=== PATIENT | female | born 1955 | race Two or more races ===

== ENCOUNTER 2025-01-13 12:07 | Inpatient (IN) | payer MEDICARE, MEDICAID, SELFPAY ==
[2025-01-13] VITALS (13 sets, daily range): BP systolic 109–133; BP diastolic 47–77; PULSE 71–86; RESP 16–80; TEMP 36.7–38.2; O2SAT 87–100; BMI 39.0
--- NOTE | 2025-01-13 12:20 | EKG_ITS ---
[facility] Test Date: 2025-01-13 Pat Name: MAX HADLEY Department: Room: - Gender: Female Rehab Tech: : [id number] Requested By: Mitch Pantoja Order Number: [id number] Reading MD: Mitch Pantoja Measurements Intervals [place] Rate: 81 P: 50 NM: 163 QRS: 60 QRSD: 84 T: 70 QT: 358 QTc: 418 Interpretive Statements SINUS RHYTHM No previous ECG available for comparison /store/S0/[id number]/[id number]
--- NOTE | 2025-01-13 12:23 | EDNOTE_ITS ---
<Statement entered by Tiffani Barrera MD - 01/13/25 15:03> As co-signing physician, I was present and available for consult prn. I concur with the plan and care as documented by the midlevel provider. ED General RME/HPI General Chief complaint: Weakness Stated complaint: SENT BY [facility] FOR HIGH BP, 90% O2 SAT ON RA Time Seen by Provider: 01/13/25 12:19 Arrival date/time: 01/13/25 12:07 CC: Cough shortness of breath fever HPI ongoing for 2 weeks progressive increase in severity over the last 24 hours. Denies any chest pain past medical history of hypertension hyperlipidemia Related Data Home Medications ?Medication ?Instructions ?Recorded ?Confirmed albuterol sulfate 2.5 mg/3 mL 2 puff inhalation TID NM N WHEEZING 09/05/13 (0.083 %) solution for nebulization ##0 clonazepam 1 mg tablet 1 mg PO BID PRN Anxiety ##0 09/05/13 01/24/19 omeprazole 20 mg capsule,delayed 20 mg PO QDAY GERD ## 0 09/05/13 01/24/19 release lisinopril 40 mg tablet 40 ml PO QDAY HBP #0 tabs 01/24/19 albuterol sulfate 90 mcg/actuation 2 puff inhalation Q ID PRN Wheezing 01/24/19 01/24/19 aerosol inhaler (Ventolin HFA) aspirin 81 mg tablet,delayed 81 mg PO QDAY 01/24/19 release (Michele Low Dose Aspirin) cetirizine 10 mg tablet 10 mg PO QDAY 01/24/1901/24 docusate sodium 250 mg capsule 250 mg PO QDAY 01/24/19 01/24/19 (Stool Softener) fluticasone furoate 100 1 inh inhalation QDAY 01/24/19 mcg-vilanterol 25 mcg/dose inhalation powder (Breo Ellipta) fluticasone furoate 50 2 mcg inhalation QDAY 01/24/19 mcg/actuation blister powder for inhalation guaifenesin 400 mg tablet 400 mg PO Q4H PRN Cough 01/0601/24/19 olopatadine 0.1 % eye drops 1 drp ophthalmic (eye) BID 01/24/19 01/24/19 ondansetron 8 mg disintegrating 8 mg PO BID PRN Nausea 01/24/19 01/24/19 tablet polyethylene glycol 3350 17 gram 17 g PO BID 01/24/19 01/24/19 oral powder packet (Miralax) pravastatin 20 mg tablet 20 mg PO QDAY 01/24/1901/24 quetiapine 100 mg tablet 100 mg PO BID 01/24/1901/24 topiramate 100 mg tablet 200 mg PO BID 01/24/1901/24 tramadol 50 mg tablet 50 mg PO BID PRN Pain 01/24/19 Previous Rx's ?Medication ?Instructions ?Recorded levofloxacin 750 mg tablet 750 mg PO Q24H #7 tabs 06/01 prednisone 20 mg tablet See Taper PO BID 3 days #6 t abs 01/13/25 Allergies Allergy/AdvReac Type Severity Reaction Status Date / Time latex Allergy Mild Rash Verified 01/13/25 12:12 Sulfa (Sulfonamide Allergy Mild Rash Verified 01/13/25 12:12 Antibiotics) Contrast Media Allergy Unknown Uncoded 01/13/25 12:12 Review of Systems Review of Systems Narrative Review of Systems: GEN: No fever, no chills, no weight loss EYES: No discharge, no visual changes, no pain HEENT: No ear pain, no congestion, no sore throat PULM: + shortness of breath, + cough, no congestion CV: No chest pain, no dyspnea on exertion, no palpitations GI: No nausea, no vomiting, no diarrhea, no pain, no constipation : No frequency, no urgency, no dysuria MUSC/SKEL: No joint pain, no back pain SKIN: No rash PSYCH: No hallucinations, no depression HEME/LYMPH: No easy bleeding or bruising tendencies NEURO: No weakness, no headache Past Medical History Past Medical History NEUROLOGIC: Negative Neurological Disorders or Seizures CARDIAC: Positive Cardiac Disorders, Hypercholesterolemia and Hypertension; Negative Congestive Heart Failure RESPIRATORY: Positive Asthma; Negative Chronic Obstructive Pulmonary Disease (COPD) GASTROINTESTINAL: Positive Gastrointestinal Disorders, Ulcer and Gastroesophageal Reflux Disease GENITOURINARY: Negative Genitourinary Disorders or Renal Disease REPRODUCTIVE: Positive Previous Pregnancies MUSCULOSKELETAL: Positive Musculoskeletal Disorders and Arthritis ENDOCRINE: Negative Endocrine Disorders, Diabetes Mellitus Type 1 or Diabetes Mellitus Type 2 HEMATOLOGIC: Negative Blood Disorders OTHER HISTORY: Positive Falls; Negative Blood Transfusions or Anesthesia Reactions Surgical History SURGICAL: Positive Abdominal Surgery Social History SMOKING STATUS: Current some day smoker ED Exam Narrative Physical exam: [General: Obese, in moderate discomfort acute distress Head normocephalic HEENT: Within acceptable limits Neck is supple nontender Chest equal chest rise nontender to palpation Respiratory: Tachypneic, expiratory crackles bibasilar also crackles in the upper lobes. Audible expiratory wheezing. CV: Rate rhythm is regular tachycardic, no murmurs rubs or clicks Abdomen is distended secondary to body habitus soft nontender no masses positive bowel sounds all 4 quadrants Back: No CVA tenderness no spinous process tenderness from cervical spine thoracic and lumbar spine Skin: Intact no petechiae rash induration ulceration or crepitus Extremities: Moving all extremity against resistance cap refill less than 2 seconds neurosensory intact Neuro: Awake alert oriented x3 Glascow coma 15 no focal deficits] Course Quality Measures none Orders Category Date Time Status Bedside COVID-19 Antigen Test NOW Care 01/13/25 13:08 Active Bedside Influenza A&B Antigen Test NOW Care 01/13/25 12:21 Completed Acoustical Installer STAT Care 01/13/25 12:20 Active Continuous Pulse Oximetry STAT Care 01/13/25 12:20 Completed EKG (ED ONLY) *Do not use* NOW Care 01/13/25 12:20 Completed In and Out Catheter X1PRN Care 01/13/25 12:20 Completed Insert IV NOW Care 01/13/25 12:20 Active NPO STAT Care 01/13/25 12:20 Active Strict Intake and Output Routine Care 01/13/25 12:20 Ordered EKG (ED Only) Stat Exams 01/13/25 12:20 Draft XR chest 1V Stat Exams 01/13/25 13:49 Completed B-Type Natriuretic Peptide Stat Lab 01/13/25 12:46 Completed Blood Culture (Lab) Stat Lab 01/13/25 12:46 Received CBC Stat Lab 01/13/25 12:46 Completed Comprehensive Metabolic Panel Stat Lab 01/13/25 12:46 Completed LDH (Lactate Dehydrogenase) Stat Lab 01/13/25 12:46 Completed Lactate (Lactic Acid) Stat Lab 01/13/25 12:46 Completed Lipase Stat Lab 01/13/25 12:46 Completed Magnesium Stat Lab 01/13/25 12:46 Completed Partial Thromboplastin Time Stat Lab 01/13/25 12:46 Completed Phosphorous Stat Lab 01/13/25 12:46 Completed Procalcitonin Stat Lab 01/13/25 12:46 Completed Prothrombin Time with INR Stat Lab 01/13/25 12:46 Completed Troponin I Stat Lab 01/13/25 12:46 Completed Urinalysis Stat Lab 01/13/25 12:20 Ordered Urine Culture Stat Lab 01/13/25 12:20 Ordered ALBUTEROL RT 0.5ml [Proventil Rt 0.5ml] Med 01/13/25 12:20 Discontinued 5 mg INH X1 ONE Acetaminophen Ivpb [Ofirmev Inj] Med 01/13/25 12:26 Discontinued 1,000 mg in 100 ml IV Q6HR cefTRIAXone/D5w 1gm IV premix [Rocephin/D5w 1gm IV Med 01/13/25 14:40 Active premix] 1 gm in 50 ml IV X1 Oxygen Delivery NOW RT 01/13/25 12:20 Active Vital Signs Vital signs: Vital Signs Temperature 100.8 F H 01/13/25 12:28 Pulse Rate 86 01/13/25 12:28 Respiratory Rate 22 H 01/13/25 12:28 Blood Pressure 133/77 H 01/13/25 12:28 Pulse Oximetry (%) 97 01/13/25 12:28 Oxygen Delivery Method Nasal Cannula 01/13/25 12:28 Oxygen Flow Rate 6 01/13/25 12:28 [facility] Patient data External records reviewed:: [facility] previous records Clinical information provided by:: patient Social determinants that could affect healthcare access:: none Patient has the following chronic illnesses:: Hypertension hyperlipidemia COPD How is presenting disease/condition affected by chronic disease/condition?: e xacerbated by Evaluation data The following diagnostics were reviewed and interpreted by me:: lab results, radiology exam(s) and EKG tracing(s) Lab and/or radiology exams considered but not ordered:: EKG performed at 1237 shows a ventricular rate of 81 NM interval 163 QRS of 84 QTc of 396 is normal sinus rhythm. CBC shows a mild leukocytosis no anemia thrombocytopenia Coags within acceptable limits Sodium 124 potassium 3.4 chloride at 86 BUN and creatinine within acceptable limits glucose of 158. Calcium of 8.4 mag of 1.5 no significant transaminitis or T. bili elevation Troponin is negative BNP is negative. Lipase is 55 Procalcitonin at 0.37. Chest x-ray as interpreted by me read by radiology showed extensive bilateral pneumonia. Interpretation Summary: Patient has been containing oxygen saturations of 94% or greater on room air no tachypnea or tachycardia. This time patient be given IV antibiotics and discharged home on antibiotics and steroids. If is worsening of symptoms next 2 to 3 days he is to return the emergency room immediately for further evaluation. Medications Medications considered but not ordered:: None Medication administrations:: Medication Administration History Ceftriaxone Sodium/Dextrose (Rocephin/D5w 1gm Iv Premix) 1 gm in 50 mls @ 100 mls/hr IV X1 ONE Stop: 01/13/25 15:09 Discontinued Medications Albuterol (Albuterol Rt 2.5 Mg/0.5 Ml Nebu) 5 mg INH X1 ONE Stop: 01/13/25 12:21 Last Admin: 01/13/25 13:02 Dose: 5 mg Documented By: KYREE Acetaminophen (Ofirmev Inj) 1,000 mg in 100 mls @ 250 mls/hr IV Q6HR DINORA Stop: 01/14/25 06:23 Last Infusion: 01/13/25 13:45 Dose: Infused Documented By: Admin: 01/13/25 13:09 Dose: 250 mls/hr Documented By: JULIANO None Consultations Consultation(s) initiated? (list below): No Diagnosis Differential Diagnosis ED Complaint MDM: Pneumonia COPD exacerbation CHF Most likely diagnosis given after review of the tests above:: Pneumonia COPD exacerbation Admission Indicated Admission indicated?: not indicated Explain why admission is indicated or not indicated:: Stable for outpatient follow-up Admission Request Was there a request for admission?: No Disposition Plan Disposition Plan: Discharge Discharge Attestation Discharge Attestation: The patient and all family members were given an opportunity to ask questions and understood the discharge instructions. Discharge instructions specifically effects, indications for sooner follow up or return to the emergency department, and the expected course of current diagnosis. Patient condition: Stable Medical Decision Making Differential Diagnosis Differential Diagnosis: Pneumonia COPD exacerbation CHF Lab Data 01/13/25 12:46 01/13/25 12:46 Labs: Lab Results 01/13/25 Range/Units 12:46 WBC 11.1 H (3.6-11.0) Thou/mm3 RBC 4.35 (4.00-5.20) Miln/mm3 Hgb 12.9 (12.0-16.0) g/dL Hct 36.7 (36.0-46.0) % MCV 84 (80-100) fL MCH 29.7 (25.0-35.0) pg MCHC 35.1 (31.0-37.0) g/dl RDW Std Deviation 36.9 (36.4-46.3) fL Plt Count 263 (140-440) Thou/mm3 Neut % (Auto) 73 (37-80) % Lymph % (Auto) 12 (10-50) % [place] % (Auto) 10 (0-12) % Eos % (Auto) 1 (0-10) % Baso % (Auto) 1 (0-2.5) % Neut # (Auto) 8.1 H (1.8-7.7) Thou/mm3 Lymph # (Auto) 1.3 (1.0-4.8) Thou/mm3 [place] # (Auto) 1.1 H (0.0-0.8) Thou/mm3 Eos # (Auto) 0.1 (0.0-0.5) Thou/mm3 Baso # (Auto) 0.1 (0.0-0.2) Thou/mm3 Immature Gran # (Auto) 0.49 H (0.00-0.00) Thou/mm3 Absolute Nucleated RBC 0.00 (0.00-0.00) Thou/mm3 Immature Gran % 4 H (0-0) % Nucleated RBC % 0 (0) /100 WBC PT 12.1 (9.0-12.2) Seconds INR 1.1 (0.9-1.3) APTT 29.6 (22.0-36.0) Seconds Sodium 124 L (136-145) mMol/L Potassium 3.4 (3.4-5.1) mMol/L Chloride 86 L (98-107) mMol/L Carbon Dioxide 30.7 (20.0-31.0) mMol/L Anion Gap 7 (7-16) BUN 20 (9-23) mg/dL Creatinine 1.1 (0.6-1.3) mg/dL Estim Creat Clear Calc 48.5 L (>60) mL/min eGFR 54 L (60 - ) See Note BUN/Creatinine Ratio 18 (12-20) Ratio Glucose 158 H (74-106) mg/dL Calculated Osmolality 255 L (275-295) Lactic Acid 1.1 (0.4-2.0) mMol/L Calcium 8.4 (8.3-10.6) mg/dL Corrected Calcium 8.4 L (8.5-10.1) mg/dL Phosphorus 3.9 (2.4-5.1) mg/dL Magnesium 1.5 L (1.6-2.6) mg/dL Total Bilirubin 0.5 (0.3-1.2) mg/dL AST 40 H (0-34) U/L ALT 29 (10-49) U/L Alkaline Phosphatase 116 (46-116) U/L Lactate Dehydrogenase 174 (120-246) U/L Troponin I < 0.002 (0.0-0.045) ng/mL B-Natriuretic Peptide 30 (0-100) pg/mL Total Protein 8.0 (5.7-8.2) gm/dL Albumin 4.0 (3.4-4.8) gm/dL Globulin 4.0 H (2.3-3.5) gm/dL Albumin/Globulin Ratio 1.0 L (1.2-2.2) Lipase 55 H (12-53) U/L Procalcitonin 0.37 (0.0-0.49) ng/ml Discharge Plan Plan Patient Disposition: HOME (Self Care) Patient condition on transfer: Stable Prescriptions/Referrals Prescriptions/Med Rec: New levofloxacin 750 mg tablet 750 mg PO Q24H Qty: 7 0RF prednisone 20 mg tablet See Taper PO BID 3 Days Qty: 6 0RF Taper: Prednisone Taper 20 mg DAILY for 2 Days and 0 Hour 10 mg DAILY for 2 Days and 0 Hour 5 mg DAILY for 7 Days and 0 Hour No Action albuterol sulfate 0.83 MG/ML solution 2 puff Inhalation TID PRN (Reason: WHEEZING) Qty: 0 clonazepam 1 MG tablet 1 mg PO BID PRN (Reason: Anxiety) Qty: 0 omeprazole 20 MG capsule,delayed release(DR/EC) 20 mg PO QDAY Qty: 0 lisinopril 40 MG tablet 40 ml PO QDAY Qty: 0 polyethylene glycol 3350 [Miralax] 17 gram Powder In Packet 17 g PO BID cetirizine 10 mg Tablet 10 mg PO QDAY aspirin [Michele Low Dose Aspirin] 81 mg Tablet,Delayed Release (Dr/Ec) 81 mg PO QDAY tramadol 50 mg Tablet 50 mg PO BID PRN (Reason: Pain) quetiapine 100 mg Tablet 100 mg PO BID ondansetron 8 mg Tablet,Disintegrating 8 mg PO BID PRN (Reason: Nausea) olopatadine 0.1 % Drops 1 drp OPHTHALMIC (EYE) BID pravastatin 20 mg Tablet 20 mg PO QDAY albuterol sulfate [Ventolin HFA] 90 mcg/actuation Hfa Aerosol Inhaler 2 puff INHALATION QID PRN (Reason: Wheezing) docusate sodium [Stool Softener] 250 mg Capsule 250 mg PO QDAY topiramate 100 mg Tablet 200 mg PO BID guaifenesin 400 mg Tablet 400 mg PO Q4H PRN (Reason: Cough) Breo Ellipta 100-25 mcg/dose Blister With Device 1 inh INHALATION QDAY fluticasone furoate 50 mcg/actuation Blister With Device 2 mcg INHALATION QDAY Referrals: Preet Blackmon MD [Primary Care Provider] - In 1 week Problem List Clinical Impression: Pneumonia Patient/Caregiver Discharge Instructions Education Materials: ED Pneumonia (Adult) Additional Instructions: Take the medication as prescribed follow-up with your primary care provider if there is a worsening of symptoms return the emergency room medially for further evaluation. Print Language: Senegalese Stand Alone Forms: Dawn Award Info., Work/School Release, Patient Portal Info Letter PA/ISRRAEL Supervising Physician PA/ISRRAEL Supervising Physician: Mitch Diop ENP
[2025-01-13 12:55] LABS: Lactate (Lactic Acid) 1.1 mMol/L (0.4-2.0)
[2025-01-13 12:57] LABS: Basophils # (Auto) 0.1 Thou/mm3 (0.0-0.2); Basophils % (Auto) 1 % (0-2.5); Eosinophils # (Auto) 0.1 Thou/mm3 (0.0-0.5); Eosinophils % (Auto) 1 % (0-10); Hematocrit 36.7 % (36.0-46.0); Hemoglobin 12.9 g/dL (12.0-16.0); Immature Granulocytes % (Auto) 4 % (0-0); Immature Granulocytes Auto 0.49 Thou/mm3 (0.00-0.00); Lymphocytes # (Auto) 1.3 Thou/mm3 (1.0-4.8); Lymphocytes % (Auto) 12 % (10-50); Mean Corpuscular HGB Conc 35.1 g/dl (31.0-37.0); Mean Corpuscular Hemoglobin 29.7 pg (25.0-35.0); Mean Corpuscular Volume 84 fL (80-100); Monocytes # (Auto) 1.1 Thou/mm3 (0.0-0.8); Monocytes % (Auto) 10 % (0-12); Neutrophils # (Auto) 8.1 Thou/mm3 (1.8-7.7); Neutrophils % (Auto) 73 % (37-80); Nucleated Red Blood Cell % 0 /100 WBC (0); Platelet Count 263 Thou/mm3 (140-440); RDW Standard Deviation 36.9 fL (36.4-46.3); Red Blood Count 4.35 Miln/mm3 (4.00-5.20); White Blood Count 11.1 Thou/mm3 (3.6-11.0)
--- NOTE | 2025-01-13 12:58 | PC.NURSE ---
Called RT for neb, tx.
[2025-01-13] MEDS: ALBUTEROL RT 2.5 MG/0.5 ML NEBU 5 MG INH (13:02)
[2025-01-13] MEDS: ACETAMINOPHEN IVPB 1,000 MG/100 ML VIAL 250 MG IV (13:09)
[2025-01-13 13:12] LABS: INR 1.1 (0.9-1.3); Partial Thromboplastin Time 29.6 Seconds (22.0-36.0); Prothrombin Time 12.1 Seconds (9.0-12.2)
[2025-01-13 13:24] LABS: B-Type Natriuretic Peptide 30 pg/mL (0-100)
[2025-01-13 13:28] LABS: Alanine Aminotransferase 29 U/L (10-49); Alkaline Phosphatase 116 U/L (46-116); Anion Gap 7 (7-16); Aspartate Amino Transferase 40 U/L (0-34); BUN/Creatinine Ratio 18 Ratio (12-20); Bilirubin,Total 0.5 mg/dL (0.3-1.2); Blood Urea Nitrogen 20 mg/dL (9-23); Calcium 8.4 mg/dL (8.3-10.6); Calcium (Corrected) 8.4 mg/dL (8.5-10.1); Carbon Dioxide 30.7 mMol/L (20.0-31.0); Chloride 86 mMol/L (98-107); Creatinine (Component) 1.1 mg/dL (0.6-1.3); Estimated Creatinine Clearance 48.5 mL/min (>60); Glucose 158 mg/dL (74-106); LDH (Lactate Dehydrogenase) 174 U/L (120-246); Lipase 55 U/L (12-53); Magnesium 1.5 mg/dL (1.6-2.6); Osmolality,Calculated 255 (275-295); Phosphorous 3.9 mg/dL (2.4-5.1); Potassium 3.4 mMol/L (3.4-5.1); Procalcitonin 0.37 ng/ml (0.0-0.49); Sodium 124 mMol/L (136-145); Troponin I < 0.002 ng/mL (0.0-0.045); eGFR 54 See Note
--- NOTE | 2025-01-13 13:49 | XR_ITS ---
Examination: AP chest single view Technique one AP portable upright chest single view Exam date and time: January 13, 2025 1358 hrs. Comparison January 29, 2015 Indications: Coughing shortness of breath today. Findings: Extensive bilateral lung opacity Mild prominence cardiac contour Prominent vascular congestion Impression: Extensive bilateral pneumonia Mild associated heart failure
[2025-01-13 14:56] LABS: Collection Type, Urine Clean Catch; Squamous Epithelial Cell,Urine 0 /hpf (0-5)
[2025-01-13 15:02] LABS: Bilirubin,Urine Negative (Negative); Blood,Urine Negative (Negative); Clarity,Urine Clear (Clear/Hazy); Color,Urine Yellow (Lt Yel-Yel); Glucose, Urine Negative (Negative); Ketones,Urine Negative (Negative); Leukocyte Esterase,Urine Negative (Negative); Nitrite,Urine Negative (Negative); PH,Urine 5.5 (5.0-7.0); Protein,Urine Negative (Neg - Trace); RBC,Urine 1 /hpf (0-3); Specific Gravity,Urine 1.018 (1.001-1.035); Urobilinogen,Urine Negative mg/dL (0.0-1.0); WBC,Urine 2 /hpf (0-5)
[2025-01-13] MEDS: cefTRIAXone/D5w 1gm IV premix 1 GM/50 ML BAG IV (15:11)
--- NOTE | 2025-01-13 17:36 | PD.RESHP ---
Documentation for date of: 01/13/25 [facility] History of Present Illness Chief complaint: Shortness of breath History of present illness: Patient appears weak and mildly confused, history is taken both from son and the patient 69-year-old female with significant past medical history of COPD not on oxygen, hypertension, morbid obesity brought to the hospital with a chief complaints of fever, decreased saturations noted in the clinic. At baseline, patient is able to do her routine daily activities and has mild chronic cough. But since 4 days patient is having generalized weakness, worsening of cough with yellowish sputum, not able to do her routine daily activities. Patient visited [facility] on the day of admission and the above generalized weakness and worsened cough. Vitals checked in the clinic showed elevated blood pressures, high temperature, low oxygen saturation for which patient was referred to the emergency department. Denies chest pain, shortness of breath, pedal edema, palpitations, sick contacts in the family ED course: -Vitals at the time of admission are blood pressure 133/77 mmHg, pulse rate 86 bpm, respiratory rate 22/min, temperature 100.8 ?F, SpO2 97% with 6 L oxygen through nasal cannula -Labs done at that time of admission significant for WBC 11.1, sodium 124, chloride 86, creatinine 1.1, magnesium 1.5, AST 40, ALT 29, procalcitonin 0.37 -Urine analysis did not show any signs of UTI -Chest x-ray showed bilateral infiltrates. EKG showed sinus rhythm Past medical history: COPD, hypertension, morbid obesity Past surgical history: Abdominal surgery - ? Hernia, patient is not remember exact name of the surgery Social history: Patient is a chronic smoker, smoked for almost 20 years, currently using vapes, stopped alcohol few years ago, denies other illicit drug abuse Allergies: Sulfa, latex Review of Systems Review of Systems Systems Reviewed: All systems reviewed, normal except as documented Past Medical History Past Medical History NEUROLOGIC: Negative Neurological Disorders or Seizures CARDIAC: Positive Cardiac Disorders, Hypercholesterolemia and Hypertension; Negative Congestive Heart Failure RESPIRATORY: Positive Asthma; Negative Chronic Obstructive Pulmonary Disease (COPD) GASTROINTESTINAL: Positive Gastrointestinal Disorders, Ulcer and Gastroesophageal Reflux Disease GENITOURINARY: Negative Genitourinary Disorders or Renal Disease REPRODUCTIVE: Positive Previous Pregnancies MUSCULOSKELETAL: Positive Musculoskeletal Disorders and Arthritis ENDOCRINE: Negative Endocrine Disorders, Diabetes Mellitus Type 1 or Diabetes Mellitus Type 2 HEMATOLOGIC: Negative Blood Disorders OTHER HISTORY: Positive Falls; Negative Blood Transfusions or Anesthesia Reactions Surgical History SURGICAL: Positive Abdominal Surgery Social History SMOKING STATUS: Current some day smoker Exam Vital Signs Temp Pulse Resp BP Pulse Ox O2 Del Method O2 Flow Rate 98.3 F 74 35 H 115/60 87 L Room Air 7 01/13/25 15:55 01/13/25 15:55 01/13/25 15:55 01/13/25 15:55 01/13/25 15:55 01/13/25 15:55 01/13/25 14:06 Narrative Exam General: Awake. wheeze heard. Mildly confused HEENT: Normocephalic, atraumatic, mucous membranes moist. Heart: Regular rate and rhythm, no murmurs. Lungs: Bilateral diffuse wheeze heard. decreased breath sounds noted on both sides Abdomen: Soft, nondistended, nontender, positive bowel sounds. ?No guarding or rebound tenderness. Midline lower abdominal scar noted Neurologic: Alert and oriented x3 but mild confusion noted, no gross neurological deficit, and patient able to move all 4 extremities. Extremities: No edema. Skin: No rash or ecchymoses. Results: Labs 01/14/25 04:35 01/14/25 04:35 Labs: Short CBC 01/13/25 Range/Units 12:46 WBC 11.1 H (3.6-11.0) Thou/mm3 Hgb 12.9 (12.0-16.0) g/dL Hct 36.7 (36.0-46.0) % Plt Count 263 (140-440) Thou/mm3 BMP 01/13/25 12:46 Sodium 124 L Potassium 3.4 Chloride 86 L Carbon Dioxide 30.7 BUN 20 Creatinine 1.1 Glucose 158 H Calcium 8.4 Cardiac Enzymes 01/13/25 Range/Units 12:46 Troponin I < 0.002 (0.0-0.045) ng/mL Liver Function 01/13/25 Range/Units 12:46 Total Bilirubin 0.5 (0.3-1.2) mg/dL AST 40 H (0-34) U/L ALT 29 (10-49) U/L Alkaline Phosphatase 116 (46-116) U/L Albumin 4.0 (3.4-4.8) gm/dL Urine 01/13/25 Range/Units 14:43 Urine Color Yellow (Lt Yel-Yel) Urine Clarity Clear (Clear/Hazy) Urine pH 5.5 (5.0-7.0) Ur Specific [place] 1.018 (1.001-1.035) Urine Protein Negative (Neg - Trace) Urine Glucose (UA) Negative (Negative) Quality Measures Quality Measures none Advance care planning discussed with:: patient and child Medications Home Medications and Allergies Home Medications ?Medication ?Instructions ?Recorded ?Confirmed ?Type albuterol sulfate 2.5 mg/3 mL 2 puff inhalation TID PRN WHEEZING 09/05/13 History (0.083 %) solution for nebulization ##0 clonazepam 1 mg tablet 1 mg PO BID PRN Anxiety ##0 09/05/13 01/24/19 History omeprazole 20 mg capsule,delayed 20 mg PO QDAY GERD ##0 09/05/13 01/13/25 History release lisinopril 40 mg tablet 40 ml PO QDAY HBP #0 tabs 05/15/14 01/24/19 History albuterol sulfate 90 mcg/actuation 2 puff inhalation QID PRN Wheezing 01/24/19 01/13/25 History aerosol inhaler (Ventolin HFA) aspirin 81 mg tablet,delayed 81 mg PO QDAY 01/24/19 01/13/25 History release (Michele Low Dose Aspirin) cetirizine 10 mg tablet 10 mg PO QDAY 01/24/19 01/13/25 History docusate sodium 250 mg capsule 250 mg PO QDAY 01/24/19 01/24/19 History (Stool Softener) fluticasone furoate 100 1 inh inhalation QDAY 01/24/19 01/13/25 History mcg-vilanterol 25 mcg/dose inhalation powder (Breo Ellipta) fluticasone furoate 50 2 mcg inhalation QDAY 01/24/19 01/13/25 History mcg/actuation blister powder for inhalation guaifenesin 400 mg tablet 400 mg PO Q4H PRN Cough 01/24/19 01/24/19 History olopatadine 0.1 % eye drops 1 drp ophthalmic (eye) BID 01/24/19 01/24/19 History ondansetron 8 mg disintegrating 8 mg PO BID PRN Nausea 01/24/19 01/24/19 History tablet polyethylene glycol 3350 17 gram 17 g PO BID 01/24/19 01/24/19 History oral powder packet (Miralax) pravastatin 20 mg tablet 20 mg PO QDAY 01/24/19 01/24/19 History quetiapine 100 mg tablet 100 mg PO BID 01/24/19 01/24/19 History topiramate 100 mg tablet 200 mg PO BID 01/24/19 01/24/19 History tramadol 50 mg tablet 50 mg PO BID PRN Pain 01/24/19 01/24/19 History chlorpheniramine maleate 4 mg 8 mg PO DAILY 01/13/25 01/13/25 History tablet chlorthalidone 25 mg tablet 25 mg PO QAM 01/13/25 01/13/25 History losartan 100 mg tablet 100 mg PO QDAY 01/13/25 01/13/25 History metoprolol succinate 100 mg 200 mg PO QDAY 01/13/25 01/13/25 History capsule sprinkle, ext. release 24 hr Allergies Allergy/AdvReac Type Severity Reaction Status Date / Time latex Allergy Mild Rash Verified 01/13/25 12:12 Sulfa (Sulfonamide Allergy Mild Rash Verified 01/13/25 12:12 Antibiotics) Contrast Media Allergy Unknown Uncoded 01/13/25 12:12 Visit Medications Acetaminophen (Acetaminophen 325 Mg Tablet) 650 mg PO Q6H PRN PRN Reason: Fever >101.5 Stop: 02/12/25 16:43 Albuterol/Ipratropium (Albuterol/Ipratropium (Duoneb) Rt Lyndsay 3 Ml Nebu) 3 ml INH Q4HRRT [facility] Stop: 02/12/25 18:59 Aspirin (Aspirin Ec 81 Mg Tabec) 81 mg PO QDAY [facility] Stop: 02/13/25 08:59 Benzonatate (Benzonatate 100 Mg Capsule) 100 mg PO TID [facility]; Protocol Stop: 02/12/25 21:59 Enoxaparin Sodium (Enoxaparin Sod Inj 40 Mg/0.4 Ml Syringe) 40 mg SC QDAY [facility] Stop: 01/28/25 08:59 Ceftriaxone Sodium/Dextrose (Rocephin/D5w 1gm Iv Premix) 1 gm in 50 mls @ 100 mls/hr IV QDAY [facility] Stop: 01/19/25 09:29 Last Admin: 01/13/25 17:18 Dose: Not Given Azithromycin 500 mg/ Sodium (Chloride) 250 mls @ 250 mls/hr IV QDAY [facility] Stop: 01/15/25 09:59 Magnesium Sulfate (Magnesium Sulfate Ivpb) 2 gm in 50 mls @ 25 mls/hr IV X1 ONE Stop: 01/13/25 18:53 Azithromycin 500 mg/ Sodium (Chloride) 250 mls @ 250 mls/hr IV X1 ONE Stop: 01/13/25 17:59 Methylprednisolone Sodium Succinate (Methylprednisolone Sod Succ 40 Mg Vial) 40 mg IVP QDAY [facility] Stop: 01/20/25 16:59 Metoprolol Succinate (Metoprolol Succinate Xl 25 Mg Tabcr) 100 mg PO QDAY [facility] Stop: 02/13/25 08:59 Ondansetron HCl (Ondansetron Inj 2 Mg/Ml Inj 2 Ml) 4 mg IV Q6H PRN; Protocol PRN Reason: NAUSEA OR VOMITING Stop: 02/12/25 16:43 Pantoprazole Sodium (Pantoprazole 40 Mg Tablet) 40 mg PO QDAY [facility] Stop: 02/13/25 08:59 Fluticasone/Salmeterol (Fluticasone/Salmeterol 250/50 14 Dose Inh) 1 puff INH BIDRT [facility] Stop: 02/12/25 18:59 Sennosides (Senna Tablet) 1 tab PO BID PRN; Protocol PRN Reason: CONSTIPATION Stop: 02/12/25 16:43 Discontinued Medications Albuterol (Albuterol Rt 2.5 Mg/0.5 Ml Nebu) 5 mg INH X1 ONE Stop: 01/13/25 12:21 Last Admin: 01/13/25 13:02 Dose: 5 mg Budesonide (Budesonide Rt 0.5 Mg/2 Ml Nebu) 0.5 mg INH BIDRT [facility] Stop: 02/12/25 18:59 Acetaminophen (Ofirmev Inj) 1,000 mg in 100 mls @ 250 mls/hr IV Q6HR [facility] Stop: 01/14/25 06:23 Last Infusion: 01/13/25 13:45 Dose: Infused Ceftriaxone Sodium/Dextrose (Rocephin/D5w 1gm Iv Premix) 1 gm in 50 mls @ 100 mls/hr IV X1 ONE Stop: 01/13/25 15:09 Last Infusion: 01/13/25 15:45 Dose: Infused Assessment & Plan Plan A 69-year-old female with significant past medical history of COPD not on oxygen, hypertension, morbid obesity brought to the hospital with a chief complaints of fever, decreased saturations noted in the clinic and admitted for Acute exacerbation of COPD secondary to bilateral pneumonia #Acute hypoxic respiratory failure # Acute exacerbation of COPD # Bilateral community-acquired pneumonia # History of COPD, not on oxygen # Leukocytosis -Patient has a history of COPD but not using any oxygen or CPAP at home -Patient had chronic cough for a long time but since 1 week cough worsened associated with weakness and not able to do routine daily activities -Patient [facility] the day of admission for generalized weakness and cough and found to have low oxygen saturation high blood pressure for which she was referred to the ED -Vitals at the time of admission are blood pressure 133/77 mmHg, pulse rate 86 bpm, SpO2 97% on 6 L oxygen -Chest x-ray showed bilateral patchy infiltrates -Curb 65 score is 4, confusion, BUN 20, respiratory rate 22, age greater than 65, required hospital admission -Tested negative for COVID and influenza Plan - DuoNeb inhalations, fluticasone/Solu-Medrol inhalations -Methylprednisolone 40 Mg IV push daily -Azithromycin 500 Mg IV daily and ceftriaxone 1 g IV daily [/8- -Oxygen as needed -ABG ordered, CPAP at bedtime # Hyponatremia -Sodium at the time of admission is 124, unsure of the normal baseline -Low sodium could be due to chronic lung pathology from COPD causing SIADH -Will monitor sodium levels and replete if needed # History of hypertension -Patient is using metoprolol, lisinopril as home medications -Resumed her home medication -Resumed aspirin, unsure of the reason for usage as patient denied CAD Hospital Maintenance: Dispo: Tele DVT ppx: Enoxaparin GI ppx: pantoprazole Diet: Cardiac IV lines:peripheral Code status:Full Patient plan of care was discussed with the attending physician, Dr. Karen Armstrong, PGY1 Attending Provider Attestation/Addendum I attest that I was physically present for the evaluation, physical examination, lab and imaging review of the patient with the residents. I discussed the case with the residents and agree with the findings and plans of care as documented above. Patient is a 69 years old female with past medical history of COPD, hypertension who presented to the ED with complaint of shortness of breath. As per the patient and her son at bedside, patient started having flulike symptoms about 2 weeks back. Since then she has not fully recovered. She started having worsening shortness of breath and cough since yesterday which prompted the visit to the ED. Patient was previously on oxygen almost couple years back, but was discontinued. Patient was also using CPAP previously, her supplies for sleep stopped coming. In the ED, she was febrile with temperature of 100.8, tachypneic. Had a slightly elevated WBC of 11.1. Chest x-ray showed bilateral infiltrates. She was started on 6 L of oxygen via nasal cannula. Her labs also showed sodium of 124, chloride 86, magnesium 1.5. At bedside, patient appeared sleepy, wakes up on calling but tends to go back to sleep right away. Has bilateral wheezing on examination. Patient's son stated that patient did not have good sleep. We will admit the patient for management of acute hypoxic respiratory failure secondary to COPD exacerbation. We will start her on IV azithromycin and Rocephin. Also started on methylprednisolone 40 mg daily. We will start supplemental oxygen, CPAP at midnight. We will also obtain ABG. We will closely monitor her sodium level. Resumed her home aspirin, metoprolol. Bhakti Jones MD
[2025-01-13] MEDS: AZITHROMYCIN INJ 500 MG in SODIUM CHLORIDE 0.9% 250 ML 250 ML 250 MG IV (17:42)
[2025-01-13] MEDS: ALBUTEROL/IPRATROPIUM (Duoneb) RT SOL 3 ML NEBU INH ×2 (18:24→23:18)
[2025-01-13 18:25] LABS: Base Excess 3 (-3-3); HCO3 31 mEq/L (20-26); Inspired O2, VO2 Liters 5 L/min; Inspired Oxygen, FIO2 21 %; O2 Saturation 100 % (91-98); PCO2 62 mmHg (32.0-48.0); PO2 137 mmHg (83-108); pH, Arterial 7.31 (7.35-7.45)
[2025-01-13 18:32] LABS: Allen Test Performed/OK; Puncture Site Right Radial
[2025-01-13] MEDS: Magnesium Sulfate 2 GM Ivpb 2 GM/50 ML BAG IV (19:07)
--- NOTE | 2025-01-13 21:40 | PC.NURSE ---
SPOKE WITH SONFATUMA FOR ADMISSION HISTORY. UPDATED ON PLAN OF CARE
--- NOTE | 2025-01-13 22:53 | PC.NURSE ---
DR. CHIN MADE AWARE OF PATIENT BEING LETHARGIC PRIOR TO TRANSFER TO FLOOR. UNABLE TO TAKE TESSALON PEARLS. NEW ORDERS TO BE PLACED BY MD FOR NPO STATUS AND ABG
[2025-01-13 23:53] LABS: Base Excess 2 (-3-3); HCO3 32 mEq/L (20-26); Inspired Oxygen, FIO2 50 %; O2 Saturation 96 % (91-98); PCO2 79 mmHg (32.0-48.0); PO2 94 mmHg (83-108); pH, Arterial 7.21 (7.35-7.45)
[2025-01-13 23:59] LABS: Allen Test Performed/OK; Puncture Site Left Radial
[2025-01-14] VITALS (17 sets, daily range): BP systolic 110–135; BP diastolic 59–72; PULSE 69–90; RESP 16–26; TEMP 36.1–36.3; O2SAT 95–99
--- NOTE | 2025-01-14 00:41 | PC.NURSE ---
DR. AGOSTO AND DONNELL, RT MADE AWARE OF ABG RESULTS. PH 7.21, PCO2 76. DONNELL STATING HE WILL COME UP AND ADJUST BIPAP SETTING. DR. AGOSTO STATING HE WILL COME AND EVALUATE PT AT BEDSIDE.
[2025-01-14] MEDS: ALBUTEROL/IPRATROPIUM (Duoneb) RT SOL 3 ML NEBU INH ×6 (02:30→22:16)
[2025-01-14 03:23] LABS: Base Excess 3 (-3-3); HCO3 32 mEq/L (20-26); Inspired Oxygen, FIO2 40 %; O2 Saturation 95 % (91-98); PCO2 73 mmHg (32.0-48.0); PO2 82 mmHg (83-108); pH, Arterial 7.25 (7.35-7.45)
[2025-01-14 03:25] LABS: Allen Test Performed/OK; Puncture Site Left Radial
--- NOTE | 2025-01-14 03:37 | PC.NURSE ---
RELAYED RESULTS OF ABG TO DR. AGOSTO, CONTINUE WITH CURRENT BIPAP SETTINGS. NO NEW ORDERS.
[2025-01-14 05:13] LABS: Basophils # (Auto) 0.1 Thou/mm3 (0.0-0.2); Basophils % (Auto) 1 % (0-2.5); Eosinophils % (Auto) 0 % (0-10); Hematocrit 38.6 % (36.0-46.0); Hemoglobin 12.7 g/dL (12.0-16.0); Immature Granulocytes % (Auto) 5 % (0-0); Immature Granulocytes Auto 0.51 Thou/mm3 (0.00-0.00); Lymphocytes % (Auto) 9 % (10-50); Mean Corpuscular HGB Conc 32.9 g/dl (31.0-37.0); Mean Corpuscular Hemoglobin 29.5 pg (25.0-35.0); Mean Corpuscular Volume 90 fL (80-100); Monocytes # (Auto) 0.4 Thou/mm3 (0.0-0.8); Monocytes % (Auto) 4 % (0-12); Neutrophils % (Auto) 82 % (37-80); Nucleated Red Blood Cell # 0.02 Thou/mm3 (0.00-0.00); Nucleated Red Blood Cell % 0 /100 WBC (0); Platelet Count 257 Thou/mm3 (140-440); RDW Standard Deviation 40.1 fL (36.4-46.3); White Blood Count 10.9 Thou/mm3 (3.6-11.0)
[2025-01-14 05:39] LABS: Alanine Aminotransferase 26 U/L (10-49); Albumin, Serum 3.9 gm/dL (3.4-4.8); Alkaline Phosphatase 115 U/L (46-116); Anion Gap 8 (7-16); Aspartate Amino Transferase 32 U/L (0-34); BUN/Creatinine Ratio 19 Ratio (12-20); Bilirubin,Total 0.3 mg/dL (0.3-1.2); Blood Urea Nitrogen 19 mg/dL (9-23); Calcium 8.9 mg/dL (8.3-10.6); Cardiac Risk Estimate 4.1 RATIO (3.7-5.6); Chloride 91 mMol/L (98-107); Cholesterol 119 mg/dL (132-200); Estimated Creatinine Clearance 53.3 mL/min (>60); Glucose 152 mg/dL (74-106); HDL Cholesterol 29 mg/dL (40-60); LDL Cholesterol,Calculated 69 mg/dL (0-130); Magnesium 2.3 mg/dL (1.6-2.6); Osmolality,Calculated 260 (275-295); Phosphorous 5.6 mg/dL (2.4-5.1); Potassium 4.1 mMol/L (3.4-5.1); Sodium 127 mMol/L (136-145); Thyroid Stimulating Hormone 0.26 uIU/mL (0.55-4.78); Total Protein 7.9 gm/dL (5.7-8.2); Triglycerides 103 mg/dL (30-150); eGFR > 60 See Note
[2025-01-14 06:46] LABS: Glucose Estimated Average 140 mg/dL (80-131); Hemoglobin A1C 6.5 % Hgb (4.8-6.0)
[2025-01-14] MEDS: ENOXAPARIN SOD INJ 40 MG/0.4 ML SYRINGE SC (08:51)
[2025-01-14] MEDS: cefTRIAXone/D5w 1gm IV premix 1 GM/50 ML BAG IV (08:51)
[2025-01-14 09:06] LABS: Free T4 (Free Thyroxine) 1.41 ng/dL (0.89-1.76)
[2025-01-14] MEDS: BENZONATATE 100 MG CAPSULE PO ×2 (14:05→21:14)
--- NOTE | 2025-01-14 14:55 | ESPR_ITS ---
<Statement entered by Ryan Francisco MD - 01/15/25 13:29> Senior Resident Attestation: I supervised/discussed management plan with production internship physician Dr. Armstrong, and was involved in the care of this patient. I personally saw and examined the patient and discussed the assessment and plan with the entire medicine team, including my attending. I agree with the assessment and plan as documented. Patient's care was discussed with attending physician, Dr. Jones. Ryan Francisco MD PGY-2. Documentation for date of: 01/14/25 Subjective Subjective Interval history: Patient is seen and examined at bedside No acute overnight events. patient is on BiPAP at the time of examination and reported that she is feeling good Vitals are stable. On physical examination bilateral fine inspiratory crackles heard Labs showed mild hyponatremia, 127, A1c 6.5, phosphorus 5.6, TSH 0.26, free T4 1.41 Repeat ABG was ordered around 3:30 PM Will continue bedtime CPAP Exam Vital Signs Temp Pulse Resp BP Pulse Ox O2 Del Method O2 Flow Rate 97.0 F 84 20 120/67 97 BiPAP 5 01/14/25 08:00 01/14/25 14:32 01/14/25 14:32 01/14/25 08:00 01/14/25 14:32 01/14/25 08:00 01/14/25 14:32 FiO2 40 01/14/25 10:19 Narrative Exam General: Awake. HEENT: Normocephalic, atraumatic, mucous membranes moist. Heart: Regular rate and rhythm, no murmurs. Lungs: Bilateral fine inspiratory crackles heard. decreased breath sounds noted on both sides Abdomen: Soft, nondistended, nontender, positive bowel sounds. ?No guarding or rebound tenderness. Midline lower abdominal scar noted Neurologic: Alert and oriented x3 , no gross neurological deficit, and patient able to move all 4 extremities. Extremities: No edema. Skin: No rash or ecchymoses. Objective Labs 01/15/25 04:35 01/15/25 04:35 Labs: Laboratory Results - last 24 hr 01/13/25 01/13/25 01/13/25 14:43 18:21 23:42 WBC RBC Hgb Hct MCV MCH MCHC RDW Std Deviation Plt Count Neut % (Auto) Lymph % (Auto) Grant % (Auto) Eos % (Auto) Baso % (Auto) Neut # (Auto) Lymph # (Auto) Grant # (Auto) Eos # (Auto) Baso # (Auto) Immature Gran # (Auto) Absolute Nucleated RBC Immature Gran % Nucleated RBC % Puncture Site Right Radial Left Radial ABG pH 7.31 L 7.21 L D ABG pCO2 62 H 79 H* D ABG pO2 137 H 94 D ABG HCO3 31 H 32 H ABG O2 Saturation 100 H 96 ABG Base Excess 3 2 Oxygen Liter Flow 5 FiO2 21 50 Sodium Potassium Chloride Carbon Dioxide Anion Gap BUN Creatinine Estim Creat Clear Calc eGFR BUN/Creatinine Ratio Glucose Estimated Ave Glu mg/dL Hemoglobin A1c Calculated Osmolality Calcium Corrected Calcium Phosphorus Magnesium Total Bilirubin AST ALT Alkaline Phosphatase Total Protein Albumin Globulin Albumin/Globulin Ratio Triglycerides Cholesterol LDL Cholesterol, Calc HDL Cholesterol Cholesterol/HDL Ratio TSH Free T4 Ur Collection Type Clean Catch Urine Color Yellow Urine Clarity Clear Urine pH 5.5 Ur Specific [place] 1.018 Urine Protein Negative Urine Glucose (UA) Negative Urine Ketones Negative Urine Blood Negative Urine Nitrite Negative Urine Bilirubin Negative Urine Urobilinogen (Auto) Negative Ur Leukocyte Esterase Negative Urine RBC 1 Urine WBC 2 Ur Squamous Epith Cells 0 Urine Bacteria None 01/14/25 01/14/25 01/14/25 03:14 04:35 04:35 WBC 10.9 RBC 4.30 Hgb 12.7 Hct 38.6 MCV 90 MCH 29.5 MCHC 32.9 RDW Std Deviation 40.1 Plt Count 257 Neut % (Auto) 82 H Lymph % (Auto) 9 L Grant % (Auto) 4 Eos % (Auto) 0 Baso % (Auto) 1 Neut # (Auto) 9.0 H Lymph # (Auto) 1.0 Grant # (Auto) 0.4 Eos # (Auto) 0.0 Baso # (Auto) 0.1 Immature Gran # (Auto) 0.51 H Absolute Nucleated RBC 0.02 H Immature Gran % 5 H Nucleated RBC % 0 Puncture Site Left Radial ABG pH 7.25 L ABG pCO2 73 H* ABG pO2 82 L ABG HCO3 32 H ABG O2 Saturation 95 ABG Base Excess 3 Oxygen Liter Flow FiO2 40 Sodium 127 L Potassium 4.1 D Chloride 91 L Carbon Dioxide 28.0 Anion Gap 8 BUN 19 Creatinine 1.0 Estim Creat Clear Calc 53.3 L eGFR > 60 BUN/Creatinine Ratio [address] Glu mg/dL 140 H Hemoglobin A1c 6.5 H Calculated Osmolality 260 L Calcium 8.9 Corrected Calcium 9.0 Phosphorus 5.6 H Magnesium 2.3 Total Bilirubin 0.3 AST 32 ALT 26 Alkaline Phosphatase 115 Total Protein 7.9 Albumin 3.9 Globulin 4.0 H Albumin/Globulin Ratio 1.0 L Triglycerides 103 Cholesterol 119 L LDL Cholesterol, Calc 69 HDL Cholesterol 29 L Cholesterol/HDL Ratio 4.1 TSH 0.26 L Free T4 Cancelled 1.41 Ur Collection Type Urine Color Urine Clarity Urine pH Ur Specific [place] Urine Protein Urine Glucose (UA) Urine Ketones Urine Blood Urine Nitrite Urine Bilirubin Urine Urobilinogen (Auto) Ur Leukocyte Esterase Urine RBC Urine WBC Ur Squamous Epith Cells Urine Bacteria ABG Interpretation ABG results: 01/13/25 01/13/25 01/14/25 18:21 23:42 03:14 ABG pH 7.31 L 7.21 L D 7.25 L ABG pCO2 62 H 79 H* D 73 H* ABG pO2 137 H 94 D 82 L ABG HCO3 31 H 32 H 32 H ABG O2 Saturation 100 H 96 95 ABG Base Excess 3 2 3 Quality Measures Quality Measures none Advance care planning discussed with:: patient Assessment & Plan Assessment Current Active Medications: Generic Name Dose Route Start Last Admin Trade Name Freq PRN Reason Stop Dose Admin Acetaminophen 650 mg 01/13/25 16:44 Acetaminophen 325 Mg Tablet PO 02/12/25 16:43 Q6H PRN Fever >101.5 Albuterol/Ipratropium 3 ml 01/13/25 19:00 01/14/25 14:32 Albuterol/Ipratropium (Duoneb) Rt Lyndsay 3 Ml Nebu INH 02/12/25 18:59 3 ml Q4HRRT DINORA Administration Aspirin 81 mg 01/14/25 09:00 01/14/25 08:51 Aspirin Ec 81 Mg Tabec PO 02/13/25 08:59 Not Given QDAY DINORA Benzonatate 100 mg 01/13/25 22:00 01/14/25 14:05 Benzonatate 100 Mg Capsule PO 02/12/25 21:59 100 mg TID DINORA Administration Protocol Dextrose 25 ml 01/14/25 09:57 Dextrose 50%-Water Inj 50 Ml Syringe IV 02/13/25 09:56 Q15MIN PRN BG 50-70 responsive npo pt Dextrose 50 ml 01/14/25 09:57 Dextrose 50%-Water Inj 50 Ml Syringe IV 02/13/25 09:56 Q15MIN PRN BG <50 OR BG <70 & pt unresponsive Enoxaparin Sodium 40 mg 01/14/25 09:00 01/14/25 08:51 Enoxaparin Sod Inj 40 Mg/0.4 Ml Syringe SC 01/28/25 08:59 40 mg QDAY DINORA Administration Glucagon 1 mg 01/14/25 09:57 Glucagon Inj 1 Mg Vial IM Q15MIN PRN BG <70, and no IV access Ceftriaxone Sodium/Dextrose 1 gm in 50 mls @ 100 mls/hr 01/13/25 16:52 01/14/25 08:51 Rocephin/D5w 1gm Iv Premix IV 01/19/25 09:29 100 mls/hr QDAY DINORA Administration Azithromycin 500 mg/ Sodium 250 mls @ 250 mls/hr 01/14/25 17:00 Chloride IV 01/16/25 17:59 QDAY@1700 [facility] Insulin Human Lispro 0 unit 01/14/25 11:30 Insulin Lispro (Admelog) 1 Unit/0.01 Ml Unit SC 02/13/25 11:29 ACHS DINORA Protocol Methylprednisolone Sodium Succinate 40 mg 01/13/25 17:00 01/14/25 08:50 Methylprednisolone Sod Succ 40 Mg Vial IVP 01/20/25 16:59 40 mg QDAY DINORA Administration Metoprolol Succinate 100 mg 01/14/25 09:00 01/14/25 08:51 Metoprolol Succinate Xl 25 Mg Tabcr PO 02/13/25 08:59 Not Given QDAY DINORA Ondansetron HCl 4 mg 01/13/25 16:44 Ondansetron Inj 2 Mg/Ml Inj 2 Ml IV 02/12/25 16:43 Q6H PRN NAUSEA OR VOMITING Protocol Pantoprazole Sodium 40 mg 01/14/25 09:00 01/14/25 08:51 Pantoprazole 40 Mg Tablet PO 02/13/25 08:59 Not Given QDAY DINORA Fluticasone/Salmeterol 1 puff 01/13/25 19:00 01/13/25 18:24 Fluticasone/Salmeterol 250/50 14 Dose Inh INH 02/12/25 18:59 Not Given BIDRT DINORA Sennosides 1 tab 01/13/25 16:44 Senna Tablet PO 02/12/25 16:43 BID PRN CONSTIPATION Protocol Plan A 69-year-old female with significant past medical history of COPD not on oxygen, hypertension, morbid obesity brought to the hospital with a chief complaints of fever, decreased saturations noted in the clinic and admitted for Acute exacerbation of COPD secondary to bilateral pneumonia #Acute hypoxic respiratory failure, resolving # Acute exacerbation of COPD, resolving # Bilateral community-acquired pneumonia # History of COPD, not on oxygen # Leukocytosis -Patient has a history of COPD but not using any oxygen or CPAP at home -Patient had chronic cough for a long time but since 1 week cough worsened associated with weakness and not able to do routine daily activities -Patient went to [facility] on the day of admission for generalized weakness and cough and found to have low oxygen saturation high blood pressure for which she was referred to the ED -Vitals at the time of admission are blood pressure 133/77 mmHg, pulse rate 86 bpm, SpO2 97% on 6 L oxygen -Chest x-ray showed bilateral patchy infiltrates -Curb 65 score is 4, confusion, BUN 20, respiratory rate 22, age greater than 65, required hospital admission -Tested negative for COVID and influenza Plan - DuoNeb inhalations, fluticasone/Solu-Medrol inhalations -Methylprednisolone 40 Mg IV push daily -Azithromycin 500 Mg IV daily and ceftriaxone 1 g IV daily [8- -Oxygen as needed -CPAP at bedtime # Hyponatremia -Sodium at the time of admission is 124, unsure of the normal baseline -->4/9,127 -Low sodium could be due to chronic lung pathology from COPD causing SIADH -Will monitor sodium levels and replete if needed # History of hypertension -Patient is using metoprolol, lisinopril as home medications -Resumed her home medication -Resumed aspirin, unsure of the reason for usage as patient denied CAD Hospital Maintenance: Dispo: Tele DVT ppx: Enoxaparin GI ppx: pantoprazole Diet: Regular IV lines:peripheral Code status:Full Patient plan of care was discussed with the attending physician, Dr. Jones and senior resident Dr. Maryam Armstrong, PGY1 Attending Provider Attestation/Addendum I attest that I was physically present for the evaluation, physical examination, lab and imaging review of the patient with the residents. I discussed the case with the residents and agree with the findings and plans of care as documented above. Overnight, patient became sleepy, repeat ABG was obtained and she was found to have elevated CO2.? She was started on BiPAP following which her CO2 started improving.? This morning at bedside, she appears alert and awake, able to answer questions and following commands, asking for water and food.? We will switch her to nasal cannula and start her on diet.? We will also obtain ABG couple hours after the nasal cannula.? Sodium level noted to be improving from 124-127 yesterday.? Patient has elevated fasting glucose along with elevated A1c of 6.5, we will start her on insulin sliding scale.? WBC count have been improving.? Patient continues to be on IV Rocephin and azithromycin, pending culture results. Bhakti Jones MD
--- NOTE | 2025-01-14 15:25 | PC.SS ---
Rounding note: 1-2 days before discharge.
[2025-01-14 16:14] LABS: Base Excess 5 (-3-3); HCO3 32 mEq/L (20-26); Inspired O2, VO2 Liters 5 L/min; O2 Saturation 93 % (91-98); PCO2 58 mmHg (32.0-48.0); PO2 66 mmHg (83-108); pH, Arterial 7.35 (7.35-7.45)
[2025-01-14 16:24] LABS: Allen Test Not Performed; Puncture Site Right Brachial
[2025-01-14] MEDS: INSULIN LISPRO (AdmeLOG) 1 UNIT/0.01 ML UNIT SC ×2 (17:00→21:15)
[2025-01-14] MEDS: AZITHROMYCIN INJ 500 MG in SODIUM CHLORIDE 0.9% 250 ML 250 ML 250 MG IV (17:01)
--- NOTE | 2025-01-14 17:24 | PC.SS ---
Initial assessment: this is 69 year old female admitted SOB. Patient confirmed demographic information. Patient lives at home, with family spouse Star and son. Patient assigned her spouse Star as her emergency contact. Patient PCP Amrit Hopson. Patient denies DME use at home. Patient plans to return home upon d/c. No needs identified at this time. D/c plan: Home Next of kin: spouse, Star
[2025-01-15] VITALS (15 sets, daily range): BP systolic 110–159; BP diastolic 51–91; PULSE 65–108; RESP 15–24; TEMP 36.1–36.6; O2SAT 5–99; BMI 39.9
[2025-01-15] MEDS: ALBUTEROL/IPRATROPIUM (Duoneb) RT SOL 3 ML NEBU INH ×6 (02:48→22:13)
[2025-01-15] MEDS: BENZONATATE 100 MG CAPSULE PO ×3 (05:30→21:23)
[2025-01-15 05:42] LABS: Basophils % (Auto) 0 % (0-2.5); Eosinophils % (Auto) 0 % (0-10); Hematocrit 34.4 % (36.0-46.0); Hemoglobin 11.4 g/dL (12.0-16.0); Immature Granulocytes % (Auto) 5 % (0-0); Immature Granulocytes Auto 0.57 Thou/mm3 (0.00-0.00); Lymphocytes # (Auto) 1.4 Thou/mm3 (1.0-4.8); Lymphocytes % (Auto) 12 % (10-50); Mean Corpuscular HGB Conc 33.1 g/dl (31.0-37.0); Mean Corpuscular Hemoglobin 29.5 pg (25.0-35.0); Mean Corpuscular Volume 89 fL (80-100); Monocytes # (Auto) 1.4 Thou/mm3 (0.0-0.8); Monocytes % (Auto) 11 % (0-12); Neutrophils # (Auto) 8.8 Thou/mm3 (1.8-7.7); Neutrophils % (Auto) 72 % (37-80); Nucleated Red Blood Cell % 0 /100 WBC (0); Platelet Count 309 Thou/mm3 (140-440); RDW Standard Deviation 39.3 fL (36.4-46.3); Red Blood Count 3.87 Miln/mm3 (4.00-5.20); White Blood Count 12.2 Thou/mm3 (3.6-11.0)
[2025-01-15 06:25] LABS: Alanine Aminotransferase 25 U/L (10-49); Albumin, Serum 3.6 gm/dL (3.4-4.8); Alkaline Phosphatase 116 U/L (46-116); Anion Gap 5 (7-16); Aspartate Amino Transferase 34 U/L (0-34); BUN/Creatinine Ratio 32 Ratio (12-20); Bilirubin,Total 0.2 mg/dL (0.3-1.2); Blood Urea Nitrogen 32 mg/dL (9-23); Calcium (Corrected) 9.3 mg/dL (8.5-10.1); Carbon Dioxide 33.4 mMol/L (20.0-31.0); Chloride 92 mMol/L (98-107); Estimated Creatinine Clearance 53.9 mL/min (>60); Globulin 3.6 gm/dL (2.3-3.5); Glucose 143 mg/dL (74-106); Osmolality,Calculated 269 (275-295); Potassium 4.2 mMol/L (3.4-5.1); Sodium 130 mMol/L (136-145); Total Protein 7.2 gm/dL (5.7-8.2); eGFR > 60 See Note
[2025-01-15] MEDS: PANTOPRAZOLE 40 MG TABLET PO (08:11)
[2025-01-15] MEDS: ASPIRIN EC 81 MG TABEC PO (08:11)
[2025-01-15] MEDS: METOPROLOL SUCCINATE XL 25 MG TABCR 100 MG PO (08:11)
[2025-01-15] MEDS: ENOXAPARIN SOD INJ 40 MG/0.4 ML SYRINGE SC (08:12)
[2025-01-15] MEDS: cefTRIAXone/D5w 1gm IV premix 1 GM/50 ML BAG IV (08:13)
--- NOTE | 2025-01-15 10:51 | PC.SS ---
Trilogy [J96.10 Chronic Respiratory Failure, J44.9 COPD] The patient needs a mechanical ventilator due to chronic respiratory failure due to severe COPD. The patient needs to keep tidal volume and prevent CO2 retention. Ventilator is required to improve pulmonary status. Without this respiratory support, in home could lead to serious harm or . BiPAP therapy failed.
--- NOTE | 2025-01-15 11:05 | PC.SS ---
Addendum entered by Elle Sandoval 01/15/25 12:16: SS follow up note; [facility] declined due to [facility] being [place]. Awaiting for other agency to accept. Addendum entered by Elle Sandoval 01/15/25 12:07: SS follow up note; [facility] care will contact will deliver Trilogy and 02 at bedside. Original Note: SS follow up note; SS submitted referral for a Trilogy through [employer].
[2025-01-15] MEDS: INSULIN LISPRO (AdmeLOG) 1 UNIT/0.01 ML UNIT SC ×3 (11:37→21:25)
--- NOTE | 2025-01-15 14:45 | ESPR_ITS ---
<Statement entered by Ryan Francisco MD - 01/16/25 14:21> Senior Resident Attestation: I supervised/discussed management plan with chief of internal medicine physician Dr. Armstrong, and was involved in the care of this patient. I personally saw and examined the patient and discussed the assessment and plan with the entire medicine team, including my attending. I agree with the assessment and plan as documented. Patient's care was discussed with attending physician, Dr. Jones. Ryan Francisco MD PGY-2. Documentation for date of: 01/15/25 Subjective Subjective Interval history: Patient is seen and examined at the bedside No acute overnight events. Denies any other complaints and notes that she is feeling really good Vitals are stable. On physical examination, bilateral diffuse wheeze heard. Labs showed mild leukocytosis which could be due to steroids, sodium improved to 130 Will continue nocturnal BiPAP. will discharge home tomorrow with BiPAP, Trilogy Exam Vital Signs Temp Pulse Resp BP Pulse Ox O2 Del Method O2 Flow Rate 97.4 F 88 16 115/51 L 95 Nasal Cannula 2 01/15/25 12:00 01/15/25 12:00 01/15/25 12:00 01/15/25 12:00 01/15/25 12:00 01/15/25 12:00 01/15/25 12:00 FiO2 40 01/15/25 02:48 Narrative Exam General: Awake. lying comfortably on the bed. HEENT: Normocephalic, atraumatic, mucous membranes moist. Heart: Regular rate and rhythm, no murmurs. Lungs: Bilateral diffuse wheeze heard. Abdomen: Soft, nondistended, nontender, positive bowel sounds. ?No guarding or rebound tenderness. Neurologic: Alert and oriented x3, no gross neurological deficit, and patient able to move all 4 extremities. Extremities: No edema. Skin: No rash or ecchymoses. Objective Labs 01/16/25 05:00 01/16/25 05:00 Labs: Laboratory Results - last 24 hr 01/14/25 01/15/25 16:06 04:35 WBC 12.2 H RBC 3.87 L Hgb 11.4 L Hct 34.4 L MCV 89 MCH 29.5 MCHC 33.1 RDW Std Deviation 39.3 Plt Count 309 D Neut % (Auto) 72 Lymph % (Auto) 12 Kings % (Auto) 11 Eos % (Auto) 0 Baso % (Auto) 0 Neut # (Auto) 8.8 H Lymph # (Auto) 1.4 Kings # (Auto) 1.4 H Eos # (Auto) 0.0 Baso # (Auto) 0.0 Immature Gran # (Auto) 0.57 H Absolute Nucleated RBC 0.00 Immature Gran % 5 H Nucleated RBC % 0 Puncture Site Right Brachial ABG pH 7.35 D ABG pCO2 58 H D ABG pO2 66 L ABG HCO3 32 H ABG O2 Saturation 93 ABG Base Excess 5 H Oxygen Liter Flow 5 Sodium 130 L Potassium 4.2 Chloride 92 L Carbon Dioxide 33.4 H Anion Gap 5 L BUN 32 H Creatinine 1.0 Estim Creat Clear Calc 53.9 L eGFR > 60 BUN/Creatinine Ratio 32 H Glucose 143 H Calculated Osmolality 269 L Calcium 9.0 Corrected Calcium 9.3 Total Bilirubin 0.2 L AST 34 ALT 25 Alkaline Phosphatase 116 Total Protein 7.2 Albumin 3.6 Globulin 3.6 H Albumin/Globulin Ratio 1.0 L ABG Interpretation ABG results: 01/13/25 01/13/25 01/14/25 18:21 23:42 03:14 ABG pH 7.31 L 7.21 L D 7.25 L ABG pCO2 62 H 79 H* D 73 H* ABG pO2 137 H 94 D 82 L ABG HCO3 31 H 32 H 32 H ABG O2 Saturation 100 H 96 95 ABG Base Excess 3 2 3 01/14/25 16:06 ABG pH 7.35 D ABG pCO2 58 H D ABG pO2 66 L ABG HCO3 32 H ABG O2 Saturation 93 ABG Base Excess 5 H Quality Measures Quality Measures none Advance care planning discussed with:: patient and spouse Assessment & Plan Assessment Current Active Medications: Generic Name Dose Route Start Last Admin Trade Name Freq PRN Reason Stop Dose Admin Acetaminophen 650 mg 01/13/25 16:44 Acetaminophen 325 Mg Tablet PO 02/12/25 16:43 Q6H PRN Fever >101.5 Albuterol/Ipratropium 3 ml 01/13/25 19:00 01/15/25 10:16 Albuterol/Ipratropium (Duoneb) Rt Lyndsay 3 Ml Nebu INH 02/12/25 18:59 3 ml Q4HRRT DINORA Administration Aspirin 81 mg 01/14/25 09:00 01/15/25 08:11 Aspirin Ec 81 Mg Tabec PO 02/13/25 08:59 81 mg QDAY DINORA Administration Benzonatate 100 mg 01/13/25 22:00 01/15/25 14:17 Benzonatate 100 Mg Capsule PO 02/12/25 21:59 100 mg TID DINORA Administration Protocol Dextrose 25 ml 01/14/25 09:57 Dextrose 50%-Water Inj 50 Ml Syringe IV 02/13/25 09:56 Q15MIN PRN BG 50-70 responsive npo pt Dextrose 50 ml 01/14/25 09:57 Dextrose 50%-Water Inj 50 Ml Syringe IV 02/13/25 09:56 Q15MIN PRN BG <50 OR BG <70 & pt unresponsive Enoxaparin Sodium 40 mg 01/14/25 09:00 01/15/25 08:12 Enoxaparin Sod Inj 40 Mg/0.4 Ml Syringe SC 01/28/25 08:59 40 mg QDAY DINORA Administration Glucagon 1 mg 01/14/25 09:57 Glucagon Inj 1 Mg Vial IM Q15MIN PRN BG <70, and no IV access Ceftriaxone Sodium/Dextrose 1 gm in 50 mls @ 100 mls/hr 01/13/25 16:52 01/15/25 08:13 Rocephin/D5w 1gm Iv Premix IV 01/19/25 09:29 100 mls/hr QDAY DINORA Administration Azithromycin 500 mg/ Sodium 250 mls @ 250 mls/hr 01/14/25 17:00 01/14/25 17:01 Chloride IV 01/16/25 17:59 250 mls/hr QDAY@1700 DINORA Administration Insulin Glargine 5 unit 01/15/25 21:00 Insulin Glargine (Lantus) 5 Unit/0.05 Ml (Per 5 Units) SC 02/14/25 20:59 HS DINORA Insulin Human Lispro 0 unit 01/14/25 11:30 01/15/25 11:37 Insulin Lispro (Admelog) 1 Unit/0.01 Ml Unit SC 02/13/25 11:29 1 unit ACHS DINORA Administration Protocol Methylprednisolone Sodium Succinate 40 mg 01/13/25 17:00 01/15/25 08:11 Methylprednisolone Sod Succ 40 Mg Vial IVP 01/20/25 16:59 40 mg QDAY DINORA Administration Metoprolol Succinate 100 mg 01/14/25 09:00 01/15/25 08:11 Metoprolol Succinate Xl 25 Mg Tabcr PO 02/13/25 08:59 100 mg QDAY DINORA Administration Ondansetron HCl 4 mg 01/13/25 16:44 Ondansetron Inj 2 Mg/Ml Inj 2 Ml IV 02/12/25 16:43 Q6H PRN NAUSEA OR VOMITING Protocol Pantoprazole Sodium 40 mg 01/14/25 09:00 01/15/25 08:11 Pantoprazole 40 Mg Tablet PO 02/13/25 08:59 40 mg QDAY DINORA Administration Fluticasone/Salmeterol 1 puff 01/13/25 19:00 01/15/25 07:32 Fluticasone/Salmeterol 250/50 14 Dose Inh INH 02/12/25 18:59 Not Given BIDRT DINORA Sennosides 1 tab 01/13/25 16:44 Senna Tablet PO 02/12/25 16:43 BID PRN CONSTIPATION Protocol Plan A 69-year-old female with significant past medical history of COPD not on oxygen, hypertension, morbid obesity brought to the hospital with a chief complaints of fever, decreased saturations noted in the clinic and admitted for Acute exacerbation of COPD secondary to bilateral pneumonia # Acute hypoxic hypercapneic respiratory failure, resolved # Acute exacerbation of COPD, resolved # Bilateral community-acquired pneumonia # History of COPD, not on oxygen at baseline # Leukocytosis, likely reactive -Patient has a history of COPD but not using any oxygen or CPAP at home currently -Patient had chronic cough for a long time but since 1 week cough worsened associated with weakness and not able to do routine daily activities -Patient went to [facility] clinic on the day of admission for generalized weakness and cough and found to have low oxygen saturation high blood pressure for which she was referred to the ED -Vitals at the time of admission are blood pressure 133/77 mmHg, pulse rate 86 bpm, SpO2 97% on 6 L oxygen -Chest x-ray showed bilateral patchy infiltrates -Curb 65 score is 4, confusion, BUN 20, respiratory rate 22, age greater than 65, required hospital admission -Tested negative for COVID and influenza -Initial ABG showed pCO2 of 62, later trended up to 78 and upon continuation of CPAP CO2 levels improved to 58 on ABG Plan -DuoNeb inhalations, fluticasone/Solu-Medrol inhalations -Methylprednisolone 40 Mg IV push daily -Azithromycin 500 Mg IV daily and ceftriaxone 1 g IV daily [/8- -Oxygen as needed -CPAP at bedtime # Hyponatremia, resolving -Sodium at the time of admission is 124, unsure of the normal baseline -->4/9,127 -->4/10,130 -Low sodium could be due to lung pathology from COPD causing SIADH -Will monitor sodium levels and replete if needed # History of hypertension -Patient is using metoprolol, lisinopril as home medications -Resumed her home medication -Resumed aspirin, unsure of the reason for usage as patient denied CAD Hospital Maintenance: Dispo: Tele DVT ppx: Enoxaparin GI ppx: pantoprazole Diet: Regular IV lines: Peripheral Code status: Full Patient plan of care was discussed with the attending physician, Dr. Jones and senior resident Dr. Maryam Armstrong, PGY1 Attending Provider Attestation/Addendum I attest that I was physically present for the evaluation, physical examination, lab and imaging review of the patient with the residents. I discussed the case with the residents and agree with the findings and plans of care as documented above. At bedside today, patient appears comfortable. She was saturating well on 3 to 4 L of nasal cannula. Denies any new complaints. Continues to have bilateral wheezing, WBC count slightly up trended to 12.2 likely from steroid use, sodium level is improving, 130 today. Blood cultures have been negative for 48 hours, urine culture is negative as well. We will obtain echocardiography, to evaluate for contributing of possible heart failure on her shortness of breath. Continues to be on IV Rocephin and azithromycin. We will obtain physical therapy evaluation and continue to wean down her oxygen. Patient used to use CPAP at home, we will plan to discharge her on home Trelegy along with supplemental oxygen if she continues to be stable tomorrow. Bhakti Jones MD
--- NOTE | 2025-01-15 15:27 | PC.PT ---
PT eval only. Patient is I with transfers and ambulation.
--- NOTE | 2025-01-15 15:47 | PC.SS ---
SS was contacted by Cortney from PT that patient needed a Rollator walker. SS sent Referral through [facility], [facility] will contact patient in regards to delivery
--- NOTE | 2025-01-15 16:18 | PC.SS ---
Addendum entered by Elle Sandoval 01/16/25 15:41: SS follow up note; SS contacted [facility] in regards to ETA, [facility] informed SS that at the time 02 Authorization was still pending, SS informed him that patient is being discharged today and is just pending 02 delivery, [facility] verbalized understanding and informed SS that if 02 does not get delivered today SS could contact [facility] tomorrow to check status on authorization and 02 could be delivered tomorrow if auth is approved. SS contacted patients nurse and updated her as well. Addendum entered by Elle Sandoval 01/16/25 11:55: SS follow up note; SS sent 02 Referral to [facility] for 02. They informed SS they are able to deliver 02 at bedside, however will need to obtain authorization from [employer]. SS will follow up with [facility] later to check status on 02 delivery. Original Note: SS follow up note; No DME agency is accepting patient for a trilogy, they are not contracted with [facility].
[2025-01-15] MEDS: AZITHROMYCIN INJ 500 MG in SODIUM CHLORIDE 0.9% 250 ML 250 ML 250 MG IV (16:54)
[2025-01-15] MEDS: FLUTICASONE/SALMETEROL 250/50 14 DOSE INH 1 PUFF INH (18:42)
[2025-01-15] MEDS: ACETAMINOPHEN 325 MG TABLET 650 MG PO (21:49)
[2025-01-15] MEDS: INSULIN GLARGINE (Lantus) 5 UNIT/0.05 ML (PER 5 UNITS) SC (21:49)
--- NOTE | 2025-01-15 22:07 | PC.NURSE ---
At rest and on room air patients spo2 at 88%; upon transferring from the bed to the bedside commode patients spo2 decreased to 82%. 3L NC placed back on patient at this time; spo2 increased to 92%.
[2025-01-16] VITALS (14 sets, daily range): BP systolic 122–146; BP diastolic 57–74; PULSE 78–105; RESP 16–25; TEMP 36.2–37.1; O2SAT 89–99; BMI 39.8; BMI 40.0
[2025-01-16] MEDS: ALBUTEROL/IPRATROPIUM (Duoneb) RT SOL 3 ML NEBU INH ×6 (02:05→23:15)
[2025-01-16 05:54] LABS: Basophils % (Auto) 0 % (0-2.5); Eosinophils % (Auto) 0 % (0-10); Hematocrit 35.9 % (36.0-46.0); Hemoglobin 12.2 g/dL (12.0-16.0); Immature Granulocytes % (Auto) 4 % (0-0); Immature Granulocytes Auto 0.39 Thou/mm3 (0.00-0.00); Lymphocytes # (Auto) 1.2 Thou/mm3 (1.0-4.8); Lymphocytes % (Auto) 13 % (10-50); Mean Corpuscular Hemoglobin 29.7 pg (25.0-35.0); Mean Corpuscular Volume 87 fL (80-100); Monocytes # (Auto) 0.9 Thou/mm3 (0.0-0.8); Monocytes % (Auto) 10 % (0-12); Neutrophils % (Auto) 73 % (37-80); Nucleated Red Blood Cell % 0 /100 WBC (0); Platelet Count 343 Thou/mm3 (140-440); Red Blood Count 4.11 Miln/mm3 (4.00-5.20); White Blood Count 9.6 Thou/mm3 (3.6-11.0)
[2025-01-16] MEDS: BENZONATATE 100 MG CAPSULE PO ×3 (06:10→21:08)
[2025-01-16 06:18] LABS: Alanine Aminotransferase 39 U/L (10-49); Albumin, Serum 3.7 gm/dL (3.4-4.8); Alkaline Phosphatase 121 U/L (46-116); Anion Gap 5 (7-16); Aspartate Amino Transferase 48 U/L (0-34); BUN/Creatinine Ratio 28 Ratio (12-20); Bilirubin,Total 0.3 mg/dL (0.3-1.2); Blood Urea Nitrogen 25 mg/dL (9-23); Calcium 9.4 mg/dL (8.3-10.6); Calcium (Corrected) 9.6 mg/dL (8.5-10.1); Carbon Dioxide 35.6 mMol/L (20.0-31.0); Chloride 93 mMol/L (98-107); Creatinine (Component) 0.9 mg/dL (0.6-1.3); Estimated Creatinine Clearance 59.9 mL/min (>60); Globulin 3.7 gm/dL (2.3-3.5); Glucose 132 mg/dL (74-106); Magnesium 1.8 mg/dL (1.6-2.6); Osmolality,Calculated 274 (275-295); Potassium 3.6 mMol/L (3.4-5.1); Sodium 134 mMol/L (136-145); Total Protein 7.4 gm/dL (5.7-8.2); eGFR > 60 See Note
[2025-01-16] MEDS: FLUTICASONE/SALMETEROL 250/50 14 DOSE INH 1 PUFF INH ×2 (06:38→18:20)
[2025-01-16] MEDS: ACETAMINOPHEN 325 MG TABLET 650 MG PO ×2 (07:23→14:39)
--- NOTE | 2025-01-16 07:50 | XR_ITS ---
Examination: AP chest single view Technique: Sitting AP portable chest single view Exam date and time: January 16, 2025 0808 hrs. Comparison January 13, 2025 Indications: Pneumonia congestion coughing this week Findings: Mild prominence cardiac contour Vascular congestion with subtle edema No lobar pneumonia Impression: Suspicious for early heart failure
[2025-01-16] MEDS: PANTOPRAZOLE 40 MG TABLET PO (08:54)
[2025-01-16] MEDS: ASPIRIN EC 81 MG TABEC PO (08:54)
[2025-01-16] MEDS: METOPROLOL SUCCINATE XL 25 MG TABCR 100 MG PO (08:54)
[2025-01-16] MEDS: cefTRIAXone/D5w 1gm IV premix 1 GM/50 ML BAG IV (08:54)
[2025-01-16] MEDS: ENOXAPARIN SOD INJ 40 MG/0.4 ML SYRINGE SC (08:54)
[2025-01-16] MEDS: POTASSIUM CHLORIDE 20 mEq TABCR 40 MEQ PO (11:11)
--- NOTE | 2025-01-16 13:08 | PRELIM_ITS ---
Radiograph of the chest (single view). January 16, 2025 0805 hours Clinical history: Pneumonia. No prior study is available for comparison. Findings: The heart, mediastinum and pulmonary nora are unremarkable. There are prominent perihilar and pulmonary interstitial lung markings. There is no pleural effusion. The bony thorax is unremarkable. Impression: Findings suggestive of interstitial pulmonary edema. Report Electronically Signed By: Rajeev Damian 01/16/2025 1:07:49 PM [EST]
[2025-01-16 13:33] LABS: Cocci Serology, IgM Negative (Negative)
--- NOTE | 2025-01-16 16:46 | ESPR_ITS ---
<Statement entered by Ryan Francisco MD - 01/17/25 09:38> Senior Resident Attestation: I supervised/discussed management plan with international coordinator physician Dr. Armstrong, and was involved in the care of this patient. I personally saw and examined the patient and discussed the assessment and plan with the entire medicine team, including my attending. I agree with the assessment and plan as documented. Patient's care was discussed with attending physician, Dr. Jones. Ryan Francisco MD PGY-2. Documentation for date of: 01/16/25 Subjective Subjective Interval history: Patient is seen and examined at bedside No acute overnight events. Tolerating BiPAP well. Denies any other complaints Vitals are stable. On physical examination still bilateral diffuse wheeze heard Labs showed uptrending sodium, 134, bicarb 35.6 Patient is supposed to get discharged today but as patient needs home oxygen, still pending authorization for home oxygen, will discharge tomorrow once it is approved. Exam Vital Signs Temp Pulse Resp BP Pulse Ox O2 Del Method O2 Flow Rate 97.8 F 86 18 146/74 H 93 L Nasal Cannula 4 01/16/25 12:00 01/16/25 12:00 01/16/25 12:00 01/16/25 12:00 01/16/25 12:00 01/16/25 12:00 01/16/25 12:00 FiO2 40 01/16/25 02:05 Narrative Exam General: Awake. lying comfortably on the bed. HEENT: Normocephalic, atraumatic, mucous membranes moist. Heart: Regular rate and rhythm, no murmurs. Lungs: Bilateral diffuse wheeze heard. Abdomen: Soft, nondistended, nontender, positive bowel sounds. ?No guarding or rebound tenderness. Neurologic: Alert and oriented x3, no gross neurological deficit, and patient able to move all 4 extremities. Extremities: No edema. Skin: No rash or ecchymoses. Objective Labs 01/17/25 04:24 01/17/25 04:24 Labs: Laboratory Results - last 24 hr 01/16/25 01/16/25 05:00 10:50 WBC 9.6 RBC 4.11 Hgb 12.2 Hct 35.9 L MCV 87 MCH 29.7 MCHC 34.0 RDW Std Deviation 39.0 Plt Count 343 D Neut % (Auto) 73 Lymph % (Auto) 13 [place] % (Auto) 10 Eos % (Auto) 0 Baso % (Auto) 0 Neut # (Auto) 7.0 Lymph # (Auto) 1.2 [place] # (Auto) 0.9 H Eos # (Auto) 0.0 Baso # (Auto) 0.0 Immature Gran # (Auto) 0.39 H Absolute Nucleated RBC 0.00 Immature Gran % 4 H Nucleated RBC % 0 Sodium 134 L Potassium 3.6 D Chloride 93 L Carbon Dioxide 35.6 H Anion Gap 5 L BUN 25 H Creatinine 0.9 Estim Creat Clear Calc 59.9 L eGFR > 60 BUN/Creatinine Ratio 28 H Glucose 132 H Calculated Osmolality 274 L Calcium 9.4 Corrected Calcium 9.6 Magnesium 1.8 Total Bilirubin 0.3 AST 48 H ALT 39 Alkaline Phosphatase 121 H Total Protein 7.4 Albumin 3.7 Globulin 3.7 H Albumin/Globulin Ratio 1.0 L Coccidioides IgM Ab Negative ABG Interpretation ABG results: 01/13/25 01/13/25 01/14/25 18:21 23:42 03:14 ABG pH 7.31 L 7.21 L D 7.25 L ABG pCO2 62 H 79 H* D 73 H* ABG pO2 137 H 94 D 82 L ABG HCO3 31 H 32 H 32 H ABG O2 Saturation 100 H 96 95 ABG Base Excess 3 2 3 01/14/25 16:06 ABG pH 7.35 D ABG pCO2 58 H D ABG pO2 66 L ABG HCO3 32 H ABG O2 Saturation 93 ABG Base Excess 5 H Quality Measures Quality Measures none Advance care planning discussed with:: patient Assessment & Plan Assessment Current Active Medications: Generic Name Dose Route Start Last Admin Trade Name Freq PRN Reason Stop Dose Admin Acetaminophen 650 mg 01/15/25 21:22 01/16/25 14:39 Acetaminophen 325 Mg Tablet PO 02/12/25 16:43 650 mg Q6H PRN Administration Fever >101.5 and pain 1-3 Albuterol/Ipratropium 3 ml 01/13/25 19:00 01/16/25 16:46 Albuterol/Ipratropium (Duoneb) Rt Lyndsay 3 Ml Nebu INH 02/12/25 18:59 3 ml Q4HRRT DINORA Administration Aspirin 81 mg 01/14/25 09:00 01/16/25 08:54 Aspirin Ec 81 Mg Tabec PO 02/13/25 08:59 81 mg QDAY DINORA Administration Benzonatate 100 mg 01/13/25 22:00 01/16/25 14:31 Benzonatate 100 Mg Capsule PO 02/12/25 21:59 100 mg TID DINORA Administration Protocol Dextrose 25 ml 01/14/25 09:57 Dextrose 50%-Water Inj 50 Ml Syringe IV 02/13/25 09:56 Q15MIN PRN BG 50-70 responsive npo pt Dextrose 50 ml 01/14/25 09:57 Dextrose 50%-Water Inj 50 Ml Syringe IV 02/13/25 09:56 Q15MIN PRN BG <50 OR BG <70 & pt unresponsive Enoxaparin Sodium 40 mg 01/14/25 09:00 01/16/25 08:54 Enoxaparin Sod Inj 40 Mg/0.4 Ml Syringe SC 01/28/25 08:59 40 mg QDAY DINORA Administration Glucagon 1 mg 01/14/25 09:57 Glucagon Inj 1 Mg Vial IM Q15MIN PRN BG <70, and no IV access Ceftriaxone Sodium/Dextrose 1 gm in 50 mls @ 100 mls/hr 01/13/25 16:52 01/16/25 08:54 Rocephin/D5w 1gm Iv Premix IV 01/19/25 09:29 100 mls/hr QDAY DINORA Administration Azithromycin 500 mg/ Sodium 250 mls @ 250 mls/hr 01/14/25 17:00 01/15/25 16:54 Chloride IV 01/16/25 17:59 250 mls/hr QDAY@1700 DINORA Administration Insulin Glargine 5 unit 01/15/25 21:00 01/15/25 21:49 Insulin Glargine (Lantus) 5 Unit/0.05 Ml (Per 5 Units) SC 02/14/25 20:59 5 unit HS DINORA Administration Insulin Human Lispro 0 unit 01/14/25 11:30 01/16/25 11:07 Insulin Lispro (Admelog) 1 Unit/0.01 Ml Unit SC 02/13/25 11:29 Not Given ACHS [facility] Protocol Methylprednisolone Sodium Succinate 40 mg 01/13/25 17:00 01/16/25 08:53 Methylprednisolone Sod Succ 40 Mg Vial IVP 01/20/25 16:59 40 mg QDAY DINORA Administration Metoprolol Succinate 100 mg 01/14/25 09:00 01/16/25 08:54 Metoprolol Succinate Xl 25 Mg Tabcr PO 02/13/25 08:59 100 mg QDAY DINORA Administration Ondansetron HCl 4 mg 01/13/25 16:44 Ondansetron Inj 2 Mg/Ml Inj 2 Ml IV 02/12/25 16:43 Q6H PRN NAUSEA OR VOMITING Protocol Pantoprazole Sodium 40 mg 01/14/25 09:00 01/16/25 08:54 Pantoprazole 40 Mg Tablet PO 02/13/25 08:59 40 mg QDAY DINORA Administration Fluticasone/Salmeterol 1 puff 01/13/25 19:00 01/16/25 06:38 Fluticasone/Salmeterol 250/50 14 Dose Inh INH 02/12/25 18:59 1 puff BIDRT DINORA Administration Sennosides 1 tab 01/13/25 16:44 Senna Tablet PO 02/12/25 16:43 BID PRN CONSTIPATION Protocol Plan A 69-year-old female with significant past medical history of COPD not on oxygen, hypertension, morbid obesity brought to the hospital with a chief complaints of fever, decreased saturations noted in the clinic and admitted for Acute exacerbation of COPD secondary to bilateral pneumonia # Acute hypoxic hypercapneic respiratory failure, resolved # Acute exacerbation of COPD, resolved # Bilateral community-acquired pneumonia, resolving # History of COPD, not on oxygen at baseline # Leukocytosis, likely reactive -Patient has a history of COPD but not using any oxygen or CPAP at home currently -Patient had chronic cough for a long time but since 1 week cough worsened associated with weakness and not able to do routine daily activities -Patient [facility] on the day of admission for generalized weakness and cough and found to have low oxygen saturation high blood pressure for which she was referred to the ED -Vitals at the time of admission are blood pressure 133/77 mmHg, pulse rate 86 bpm, SpO2 97% on 6 L oxygen -Chest x-ray showed bilateral patchy infiltrates -Curb 65 score is 4, confusion, BUN 20, respiratory rate 22, age greater than 65, required hospital admission -Tested negative for COVID and influenza -Initial ABG showed pCO2 of 62, later trended up to 78 and upon continuation of CPAP CO2 levels improved to 58 on ABG Plan -DuoNeb inhalations, fluticasone/Solu-Medrol inhalations -Methylprednisolone 40 Mg IV push daily -Azithromycin 500 Mg IV daily and ceftriaxone 1 g IV daily [8- -Oxygen as needed -CPAP at bedtime # Hyponatremia, resolving -Sodium at the time of admission is 124, unsure of the normal baseline -->4/,127 -->4/10,130 --->4/, 135 -Low sodium could be due to underlying lung infection causing SIADH -Will monitor sodium levels and replete if needed # History of hypertension -Patient is using metoprolol, lisinopril as home medications -Resumed her home medication -Resumed aspirin, unsure of the reason for usage as patient denied CAD Hospital Maintenance: Dispo: Tele DVT ppx: Enoxaparin GI ppx: pantoprazole Diet: Regular IV lines: Peripheral Code status: Full Patient plan of care was discussed with the attending physician, Dr. Jones and senior resident Dr. Maryam Armstrong, PGY1 Attending Provider Attestation/Addendum I attest that I was physically present for the evaluation, physical examination, lab and imaging review of the patient with the residents. I discussed the case with the residents and agree with the findings and plans of care as documented above. At bedside, patient continues to feel well, saturating well on 3 to 4 L oxygen via nasal cannula. Continues to be on IV Rocephin and steroid, will complete her azithromycin dose today. Blood cultures have been negative for 48 hours. Urine cultures are negative. Repeat chest x-ray shows improvement on her bilateral lung infiltrates. WBC count has improved. Sodium level have also improved to 134 today. Patient is being planned for discharge, awaiting authorization for home oxygen. Bhakti Jones MD
[2025-01-16] MEDS: INSULIN LISPRO (AdmeLOG) 1 UNIT/0.01 ML UNIT SC ×2 (17:32→21:13)
[2025-01-16] MEDS: AZITHROMYCIN INJ 500 MG in SODIUM CHLORIDE 0.9% 250 ML 250 ML 250 MG IV (17:36)
[2025-01-16] MEDS: INSULIN GLARGINE (Lantus) 5 UNIT/0.05 ML (PER 5 UNITS) SC (21:13)
[2025-01-17] VITALS (10 sets, daily range): BP systolic 121–163; BP diastolic 67–78; PULSE 61–113; RESP 16–22; TEMP 35.9–36.4; O2SAT 91–100; BMI 39.4
[2025-01-17] MEDS: ALBUTEROL/IPRATROPIUM (Duoneb) RT SOL 3 ML NEBU INH ×3 (03:30→10:32)
[2025-01-17] MEDS: BENZONATATE 100 MG CAPSULE PO ×2 (06:02→13:12)
[2025-01-17 06:04] LABS: Basophils % (Auto) 0 % (0-2.5); Eosinophils % (Auto) 0 % (0-10); Hematocrit 37.6 % (36.0-46.0); Hemoglobin 12.2 g/dL (12.0-16.0); Immature Granulocytes % (Auto) 5 % (0-0); Immature Granulocytes Auto 0.39 Thou/mm3 (0.00-0.00); Lymphocytes # (Auto) 1.7 Thou/mm3 (1.0-4.8); Lymphocytes % (Auto) 20 % (10-50); Mean Corpuscular HGB Conc 32.4 g/dl (31.0-37.0); Mean Corpuscular Hemoglobin 29.8 pg (25.0-35.0); Mean Corpuscular Volume 92 fL (80-100); Monocytes # (Auto) 0.6 Thou/mm3 (0.0-0.8); Monocytes % (Auto) 7 % (0-12); Neutrophils % (Auto) 69 % (37-80); Nucleated Red Blood Cell % 0 /100 WBC (0); Platelet Count 386 Thou/mm3 (140-440); RDW Standard Deviation 40.6 fL (36.4-46.3); White Blood Count 8.7 Thou/mm3 (3.6-11.0)
[2025-01-17 06:41] LABS: Alanine Aminotransferase 45 U/L (10-49); Albumin, Serum 3.8 gm/dL (3.4-4.8); Albumin/Globulin Ratio 1.1 (1.2-2.2); Alkaline Phosphatase 117 U/L (46-116); Anion Gap 6 (7-16); Aspartate Amino Transferase 46 U/L (0-34); BUN/Creatinine Ratio 21 Ratio (12-20); Bilirubin,Total 0.3 mg/dL (0.3-1.2); Blood Urea Nitrogen 17 mg/dL (9-23); Calcium 9.3 mg/dL (8.3-10.6); Calcium (Corrected) 9.5 mg/dL (8.5-10.1); Chloride 94 mMol/L (98-107); Creatinine (Component) 0.8 mg/dL (0.6-1.3); Estimated Creatinine Clearance 65.3 mL/min (>60); Globulin 3.6 gm/dL (2.3-3.5); Glucose 108 mg/dL (74-106); Osmolality,Calculated 270 (275-295); Sodium 134 mMol/L (136-145); Total Protein 7.4 gm/dL (5.7-8.2); eGFR > 60 See Note
[2025-01-17] MEDS: FLUTICASONE/SALMETEROL 250/50 14 DOSE INH 1 PUFF INH (06:57)
[2025-01-17] MEDS: ACETAMINOPHEN 325 MG TABLET 650 MG PO (07:43)
[2025-01-17] MEDS: cefTRIAXone/D5w 1gm IV premix 1 GM/50 ML BAG IV (08:09)
[2025-01-17] MEDS: ASPIRIN EC 81 MG TABEC PO (08:09)
[2025-01-17] MEDS: METOPROLOL SUCCINATE XL 25 MG TABCR 100 MG PO (08:09)
[2025-01-17] MEDS: ENOXAPARIN SOD INJ 40 MG/0.4 ML SYRINGE SC (08:09)
[2025-01-17] MEDS: PANTOPRAZOLE 40 MG TABLET PO (08:10)
--- NOTE | 2025-01-17 09:55 | PC.SS ---
Mortuary Beautician (MOUNA) Malia met with patient to discuss discharge plan. SW introduced self, role and reason for visit. Patient reported that she was returning home with oxygen therapy. Patient's , [employer] ([phone]) will be providing transportation and her FWW was delivered at home as well. MOUNA discussed IMM, signed and copy was placed in chart. MOUNA contacted [facility] and spoke to dispatcher, Tess, who reported that O2 will be delivered in 2 to 3 hours. MOUNA updated beside Komal.
[2025-01-17] MEDS: INSULIN LISPRO (AdmeLOG) 1 UNIT/0.01 ML UNIT SC (11:27)
--- NOTE | 2025-01-17 13:01 | ESDS_ITS ---
Planned Discharge Date 01/17/25 DS: Providers Provider Date of admission: 01/13/25 16:45 Primary care physician: Preet Blackmon MD Admitting Provider: Bhakti Jones MD Attending Provider on Admission: Bhakti Jones MD Consults: 01/15/25 10:45 Referral Physical Therapy Routine Comment: Physician Instructions: Attending Provider on DC: Ryan Francisco MD Discharging Provider: Ryan Francisco MD DS: Diagnosis Problem List Completed Was Problem List Reviewed/Reconciled?: Yes Hospital Course Hospital Course Hospital course: Patient is a 69-year-old female with significant past medical history of COPD not on oxygen, active nicotine vaping, hypertension, morbid obesity brought to the hospital with a chief complaints of fever, decreased saturations noted in the clinic. For the last 4 days patient was having generalized weakness, worsening of cough with yellowish sputum, not able to do her routine daily activities. Vitals at the time of admission were blood pressure 133/77 mmHg, pulse rate 86 bpm, respiratory rate 22/min, temperature 100.8 ?F, SpO2 97% with 6 L oxygen through nasal cannula. Labs done at that time of admission significant for WBC 11.1, sodium 124, chloride 86, creatinine 1.1, magnesium 1.5, AST 40, ALT 29, procalcitonin 0.37. Chest x-ray showed bilateral infiltrates. She was admitted for further management of her pneumonia and COPD exacerbation, and was started on IV Ceftriaxone and Azithromycin, IV methylprednisolone and breathing treatment. Due to drop in saturation overnight she was started on CPAP HS with significant improvement of her saturation and quality of sleep, however she was not approved by insurance for home CPAP/BiPAP and will need to follow up with PCP. Her blood and urine cultures returned neg ative. Her condition has improved and she is stable for discharge today with home oxygen and oral antibiotics. Problems: # Acute hypoxic hypercapneic respiratory failure, resolved. # Acute exacerbation of COPD, improved. # Bilateral community-acquired pneumonia, improved. # History of COPD, not on oxygen at baseline. # Leukocytosis, likely reactive. # Hyponatremia, improved. # History of hypertension. Recommendations: Continue home medication as prescribed. Use home oxygen daily. Take Augmentin 1 tab twice daily for 4 days. Take benzonatate 100 mg as needed up to twice daily for cough. Contact you PCP regarding CPAP machine to obtain supplies or replace machine and use it every night. Follow up with PCP within 1 week. Plan of care discussed with attending Dr. Jones. Ryan Francisco MD, PGY 2. Disclaimer: This note was dictated by speech recognition. Minor errors in asphalt coater may be present due to voice recognition software. Time Spent with Patient Time attestation: Total time spent providing and/or coordinating discharge services: Time spent: Less than 30 minutes Exam Vital Signs Temp Pulse Resp BP Pulse Ox O2 Del Method O2 Flow Rate 97.4 F 88 20 146/78 H 94 L Nasal Cannula 3 01/17/25 12:00 01/17/25 12:00 01/17/25 12:00 01/17/25 12:00 01/17/25 12:00 01/17/25 12:00 01/17/25 12:00 FiO2 2.5 01/17/25 10:34 Narrative Exam Gen: Well-developed and well-nourished obese female. HEENT: NCAT, PERRLA, EOMI, MMM, anicteric conjunctivae. CVS: normal S1 and S2. RRR. No M/R/G. Resp: mild wheezing B/L. No rhonchi, rales, crackles. Abd: soft, obese, non-tender, non-distended. BS+ in all 4 quadrants. MSK: Good ROM in BUE & BLE. No edema or rash. Neuro: CN II-XII grossly intact. Strength 5/5 in BUE & BLE. Alert and oriented x3. Psych: appropriate mood and affect. Discharge Plan Plan Patient Disposition: HOME (Self Care) Patient condition on transfer: Stable Care Plan Goals: Continue home medication as prescribed. Use home oxygen daily. Take Augmentin 1 tab twice daily for 4 days. Take benzonatate 100 mg as needed up to twice daily for cough. Contact you PCP regarding CPAP machine to obtain supplies or replace machine and use it every night. Follow up with PCP within 1 week. If you don't have a PCP, you can make an appointment at the [facility]: [address] [place] [address] Prescriptions/Referrals Prescriptions/Med Rec: New amoxicillin-pot clavulanate 875-125 mg tablet 1 tab PO BID 4 Days Qty: 8 0RF benzonatate 100 mg capsule 100 mg PO BID PRN (Reason: cough) Qty: 7 0RF No Action albuterol sulfate 0.83 MG/ML solution 2 puff Inhalation TID PRN (Reason: WHEEZING) Qty: 0 clonazepam 1 MG tablet 1 mg PO BID PRN (Reason: Anxiety) Qty: 0 omeprazole 20 MG capsule,delayed release(DR/EC) 20 mg PO QDAY Qty: 0 lisinopril 40 MG tablet 40 ml PO QDAY Qty: 0 polyethylene glycol 3350 [Miralax] 17 gram Powder In Packet 17 g PO BID cetirizine 10 mg Tablet 10 mg PO QDAY aspirin [Michele Low Dose Aspirin] 81 mg Tablet,Delayed Release (Dr/Ec) 81 mg PO QDAY tramadol 50 mg Tablet 50 mg PO BID PRN (Reason: Pain) quetiapine 100 mg Tablet 100 mg PO BID ondansetron 8 mg Tablet,Disintegrating 8 mg PO BID PRN (Reason: Nausea) olopatadine 0.1 % Drops 1 drp OPHTHALMIC (EYE) BID pravastatin 20 mg Tablet 20 mg PO QDAY albuterol sulfate [Ventolin HFA] 90 mcg/actuation Hfa Aerosol Inhaler 2 puff INHALATION QID PRN (Reason: Wheezing) docusate sodium [Stool Softener] 250 mg Capsule 250 mg PO QDAY topiramate 100 mg Tablet 200 mg PO BID guaifenesin 400 mg Tablet 400 mg PO Q4H PRN (Reason: Cough) fluticasone furoate-vilanterol [Breo Ellipta] 100-25 mcg/dose Blister With Device 1 inh INHALATION QDAY fluticasone furoate 50 mcg/actuation Blister With Device 2 mcg INHALATION QDAY chlorpheniramine maleate 4 mg tablet 8 mg PO DAILY metoprolol succinate 100 mg capsule,sprinkle,ER 24hr 200 mg PO QDAY chlorthalidone 25 mg tablet 25 mg PO QAM Rx Instructions: W/FOOD losartan 100 mg tablet 100 mg PO QDAY Referrals: Preet Blackmon MD [Primary Care Provider] - Patient/Caregiver Discharge Instructions Education Materials: Discharge Instructions: COPD, ED Pneumonia (Adult) Print Language: Malay Stand Alone Forms: Dawn Award Info., Patient Portal Info Letter Discharge Order Discharge Orders: Discharge (Routine); Ordered 01/17/25 Ordered By: Ryan Francisco Quality Discharge Quality Measures VTE prophylaxis Attestestation MD Attestation I attest that I was physically present for the evaluation, physical examination, lab and imaging review of the patient with the residents. I discussed the case with the residents and agree with the findings and plans of care as documented above. Bhakti Jones MD
[2025-01-17 13:39] LABS: Cocci Serology, IgG Negative (Negative)
== END 2025-01-17 14:16 | disposition home or self-care (01) | DRG 190 ==
LOC: SERX 16:12 → SERHOLD 17:05 → S2NX 21:15
PROVIDERS: Registered Nurse General Practice; Student in an Organized Health Care Education/Training Program; Admitting Provider Student in an Organized Health Care Education/Training Program; Emergency Provider Emergency Medicine; PCP Family Medicine; Visit Provider Student in an Organized Health Care Education/Training Program
DX: J44.1 Chronic obstructive pulmonary disease with (acute) exacerbation (principal); J18.9 Pneumonia, unspecified organism; J96.01 Acute respiratory failure with hypoxia; J96.02 Acute respiratory failure with hypercapnia; E87.1 Hypo-osmolality and hyponatremia; J44.0 Chronic obstructive pulmonary disease with (acute) lower respiratory infection; I10 Essential (primary) hypertension; E78.5 Hyperlipidemia, unspecified; F17.200 Nicotine dependence, unspecified, uncomplicated; E66.01 Morbid (severe) obesity due to excess calories; Z68.39 Body mass index [BMI] 39.0-39.9, adult; Z79.82 Long term (current) use of aspirin; Z79.899 Other long term (current) drug therapy; K21.9 Gastro-esophageal reflux disease without esophagitis; R73.01 Impaired fasting glucose; Z88.2 Allergy status to sulfonamides
CPT/HCPCS: 36415; 36600; 71045; 80053; 80061; 81001; 82803; 83036; 83605; 83615; 83690; 83735; 83880; 84100; 84145; 84439; 84443; 84484; 85025; 85610; 85730; 86331; 86635; 87040; 87086; 87400; 87811; 93005; 93306; 94640; 94644; 94660; 94664; 96365; 96366; 96367; 96375; 97162; 99285; A9270; J0131; J0456; J0696; J1650; J1815; J2919; J3475; J7050